=== PATIENT | female | born 2000 | race Hispanic/Latino ===

== ENCOUNTER 2019-11-13 23:47 | Emergency (ER) | payer BC ==
--- OUTSIDE RECORDS SUMMARY | 2019-11-13 23:50 | XMS REPORT | Continuity of Care Document ---
:2000 Author Organization [facility] Care Team Providers Name Role Phone [facility] Unavailable Un available Problems Problem Status Onset Classification Date Comments Sourc e Date Reported M25.449 - Active MH OPID "EFFUSION, 0 Sugar UNSPECIFIED Land HAND" Medications No Data Provided for This Section Allergies, Adverse Reactions, Alerts No Known Medication Allergies Immunizations No Data Provided for This Section Results No Data Provided for This Section Pathology Reports No Data Provided for This Section Diagnostic Reports Report Value Date Source Hand 2 views Bilateral EXAMINATION: Bilateral hands 2 views each . 11/13/2019 [facility] OPID [place] DX HISTORY: - Swelling of hand joint.; Bilateral h and polyarthralgia FINDINGS: Two views of each hand are performed w ithout comparison. There is no acute fracture o r dislocation. The joint spaces are normal. There are no osseous erosions identified. There is negative ulnar variance of the right wrist. The alignment is otherwise normal. There are no radiopaque foreign bodies. IMPRESSION: 1. Normal joint spaces of ronak th hands without radiographic evidence of inflammatory arthropathy. 2. Note made of negative ulnar variance of the r ight wrist. Consultation Notes No Data Provided for This Section Discharge Summaries No Data Provided for This Section History and Physicals No Data Provided for This Section Vital Signs No Data Provided for This Section Encounters No Data Provided for This Section Procedures No Data Provided for This Section Assessment and Plan No Data Provided for This Section Plan of Care No Data Provided for This Section Social History No Data Provided for This Section Family History No Data Provided for This Section Advance Directives No Data Provided for This Section Functional Status No Data Provided for This Section
[2019-11-14] MEDS ORDERED: FAMOTIDINE 20 MG/2 ML VIAL IV ONE (00:09)
[2019-11-14] MEDS ORDERED: DIPHENHYDRAMINE 50 MG/ML VIAL ONE (00:09)
[2019-11-14] MEDS ORDERED: METHYLPREDNISOLONE 125 MG INJ ONE (00:09)
[2019-11-14] MEDS ORDERED: NA CHLORIDE 0.9% 1,000 ML ONE (00:09)
--- NOTE | 2019-11-14 01:16 | EDPHYS ---
Physician Documentation [facility] Name: Marcie Kapadia Age: 19 yrs Sex: Female : 2000 Arrival Date: 11/13/2019 Time: 23:51 Bed 13 Private MD: Morgan Solis T ED Physician Jefferson Ford HPI: 11/13 00:00 This 19 yrs old Female presents to ER via Unassigned with complaints of Hand kb Swelling, Rash. 00:00 The patient's rash thought to be caused by an unknown cause. The rash is located on the kb body diffusely. The rash can be described as urticarial. Onset: The symptoms/episode began/occurred 1 week(s) ago, and became worse. Associated signs and symptoms: Pertinent positives: itching. Severity of symptoms: At their worst the symptoms were moderate in the emergency department the symptoms are unchanged. The patient has not experienced similar symptoms in the past. The patient has been recently seen by a physician:. Pt reports diffuse rash for a week. States the itching got worse tonight. Also reports bilateral hand swelling. Has been to PCP and was referred to rheumatology. Was seen by rheumatology and they ruled out an autoimmune disease. Pt has appt with vacuum drum drier operator on Friday. Reports swelling has been going on for a month and felt worse tonight. . 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 - Social history:: Smoking status: Patient denies any tobacco usage or history of. ROS: 00:00 Constitutional: Negative for fever, chills, and weight loss, Cardiovascular: Negative kb for chest pain, palpitations, and edema, Respiratory: Negative for shortness of breath, cough, wheezing, and pleuritic chest pain, Abdomen/GI: Negative for abdominal pain, nausea, vomiting, diarrhea, and constipation, Back: Negative for injury and pain, : Negative for injury, bleeding, discharge, and swelling, MS/Extremity: Negative for injury and deformity, Neuro: Negative for headache, weakness, numbness, tingling, and seizure. 00:00 Skin: Positive for swelling, of the right hand and left hand. 00:03 Skin: Positive for rash, diffusely. kb Exam: 00:03 Constitutional: This is a well developed, well nourished patient who is awake, alert, kb and in no acute distress. Head/Face: Normocephalic, atraumatic. Chest/axilla: Normal chest wall appearance and motion. Nontender with no deformity. No lesions are appreciated. Cardiovascular: Regular rate and rhythm with a normal S1 and S2. No gallops, murmurs, or rubs. Normal PMI, no JVD. No pulse deficits. Respiratory: Lungs have equal breath sounds bilaterally, clear to auscultation and percussion. No rales, rhonchi or wheezes noted. No increased work of breathing, no retractions or nasal flaring. Abdomen/GI: Soft, non-tender, with normal bowel sounds. No distension or tympany. No guarding or rebound. No evidence of tenderness throughout. MS/ Extremity: Pulses equal, no cyanosis. Neurovascular intact. Full, normal range of motion. Neuro: Awake and alert, GCS 15, oriented to person, place, time, and situation. Cranial nerves II-XII grossly intact. Motor strength 5/5 in all extremities. Sensory grossly intact. Cerebellar exam normal. Normal gait. 00:03 Skin: Appearance: normal except for affected area, swelling, noted on the right hand and left hand, that are moderate, that are marked, rash a moderate rash is noted, rash can be described as urticarial, and is diffusely located. Vital Signs: 00:00 BP 161 / 95; Pulse 120; Resp 18; Temp 99.2(O); Pulse Ox 99% on R/A; lp1 01:39 BP 127 / 85; Pulse 100; Resp 18; Pulse Ox 100% on R/A; lp1 MDM: 11/12 23:52 Patient medically screened. kb 11/13 00:00 Data reviewed: vital signs, nurses notes. Data interpreted: Pulse oximetry: on room air kb is 100 %. Interpretation: normal. 00:04 ED course: Educated to keep appt with vacuum drum drier operator to determine cause of hand swelling.. kb 01:15 Counseling: I had a detailed discussion with the patient and/or guardian regarding: the kb historical points, exam findings, and any diagnostic results supporting the discharge/admit diagnosis, the need for outpatient follow up, an allergy/operating systems specialist, a family practitioner, to return to the emergency department if symptoms worsen or persist or if there are any questions or concerns that arise at home. Response to treatment: the patient's symptoms have markedly improved after treatment. 11/12 23:59 Order name: IV Start; Complete Time: 00:53 kb Administered Medications: 00:45 Drug: Pepcid 20 mg Route: IVP; Site: left antecubital; vc 01:40 Follow up: Response: No adverse reaction lp1 00:45 Drug: SOLU-Medrol 125 mg Route: IVP; Site: left antecubital; vc 01:40 Follow up: Response: No adverse reaction; Marked relief of symptoms lp1 00:45 Drug: Benadryl 12.5 mg Route: IVP; Site: left antecubital; vc 01:40 Follow up: Response: No adverse reaction; Marked relief of symptoms lp1 00:50 Drug: NS 0.9% 1000 ml Route: IV; Rate: 1000 ml; Site: left antecubital; vc 01:39 Follow up: IV Status: Completed infusion; IV Intake: 900ml lp1 Disposition: 06:22 Co-signature as Attending Physician, Jefferson Ford MD. [email or web address] Disposition: 11/14/19 01:15 Discharged to Home. Impression: Urticaria, Bilateral hand swelling. - Condition is Stable. - Discharge Instructions: Edema, Ryov-on-Xela, Hives, [id number]-[id number], Allergies, Rcor-tl-Rgdj. - Prescriptions for Pepcid 20 mg Oral Tablet - take 1 tablet by ORAL route every 12 hours for 5 days; 10 tablet. Prednisone 20 mg Oral Tablet - take 1 tablet by ORAL route once daily for 5 days; 5 tablet. - Medication Reconciliation Form, Thank You Letter, Antibiotic Education, Prescription Opioid Use form. - Follow up: Emergency Department; When: As needed; Reason: Worsening of condition. Follow up: Private Physician; When: 2 - 3 days; Reason: Recheck today's complaints, Continuance of care, Re-evaluation by your physician. Signatures: Deanne Soliz, LUAN-C COPY MANAGER-Ckb Gely Miranda RN RN lp1 Deepali Greene RN RN vc Jefferson Ford MD MD [email or web address] Corrections: (The following items were deleted from the chart) 00:28 00:26 Home Meds: None; lp1 lp1 01:40 01:15 11/14/2019 01:15 Discharged to Home. Impression: Urticaria; Bilateral hand lp1 swelling. Condition is Stable. Forms are Medication Reconciliation Form, Thank You Letter, Antibiotic Education, Prescription Opioid Use. Follow up: Emergency Department; When: As needed; Reason: Worsening of condition. Follow up: Private Physician; When: 2 - 3 days; Reason: Recheck today's complaints, Continuance of care, Re-evaluation by your physician. kb
--- NOTE | 2019-11-14 01:16 | ER ---
Nurse's Notes [facility] Name: Marcie Kapadia Age: 19 yrs Sex: Female : 2000 Arrival Date: 11/13/2019 Time: 23:51 Bed 13 Private MD: Morgan Solis T Diagnosis: Urticaria;Bilateral hand swelling Presentation: 11/13 00:00 Chief complaint: Patient states: Hand swelling x 1 month, rash x 1 week; States seeing lp1 RA doctor for continued care without relief; States swelling and pain worse tonight. 00:00 Coronavirus screen: Proceed with normal triage. Ebola Screen: No symptoms or risks lp1 identified at this time. Initial Sepsis Screen: Does the patient meet any 2 criteria? HR > 90 bpm. Does the patient have a suspected source of infection? No. Patient's initial sepsis screen is negative. Risk Assessment: Do you want to hurt yourself or someone else? Patient reports no desire to harm self or others. Onset of symptoms was November 14, 2019. 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 - Social history:: Smoking status: Patient denies any tobacco usage or history of. Screenin:26 Abuse screen: Denies threats or abuse. Denies injuries from another. Nutritional lp1 screening: No deficits noted. Tuberculosis screening: No symptoms or risk factors identified. Fall Risk None identified. Assessment: 00:26 General: Appears in no apparent distress. Behavior is calm, cooperative, appropriate lp1 for age. General:. Pain: Complains of pain in right hand and left hand. Neuro: No deficits noted. Cardiovascular: No deficits noted. Respiratory: No deficits noted. GI: No signs and/or symptoms were reported involving the gastrointestinal system. : No signs and/or symptoms were reported regarding the genitourinary system. EENT: No signs and/or symptoms were reported regarding the EENT system. Derm: Rash noted that is urticaria, on left lateral posterior chest, right lateral posterior chest, left lateral anterior chest, right lateral anterior chest, right hand and left hand Reports itching. Musculoskeletal: No deficits noted. 00:50 Reassessment: Patient appears in no apparent distress at this time. Patient and/or vc family updated on plan of care and expected duration. Pain level reassessed. 01:39 Reassessment: Patient appears in no apparent distress at this time. Patient is alert, lp1 oriented x 3, equal unlabored respirations, skin warm/dry/pink. Patient states feeling better. Patient states symptoms have improved. Reassessment: Rash to bilateral hands, redness improved. Vital Signs: 00:00 BP 161 / 95; Pulse 120; Resp 18; Temp 99.2(O); Pulse Ox 99% on R/A; lp1 01:39 BP 127 / 85; Pulse 100; Resp 18; Pulse Ox 100% on R/A; lp1 ED Course: 11/12 23:51 Patient arrived in ED. es 23:51 [facility]C [facility] kb 23:51 Jefferson Ford MD is Attending Physician. kb 23:51 Morgan Solis MD is Private Physician. es 11/13 00:21 Deepali Greene, RN is Primary Nurse. vc 00:24 Missed attempt(s): 20 gauge in right antecubital area. Missed attempt(s): 20 gauge in lp1 left forearm. 00:25 Triage completed. lp1 00:26 Arm band placed on. lp1 00:27 Primary Nurse role handed off by Deepali Greene, STEVE lp1 00:27 Gely Miranda, STEVE is Primary Nurse. lp1 00:27 Patient has correct armband on for positive identification. lp1 00:40 Inserted saline lock: 24 gauge in left antecubital area, using aseptic technique. vc 01:39 No provider procedures requiring assistance completed. IV discontinued, No lp1 redness/swelling at site. Pressure dressing applied. Administered Medications: 00:45 Drug: Pepcid 20 mg Route: IVP; Site: left antecubital; vc 01:40 Follow up: Response: No adverse reaction lp1 00:45 Drug: SOLU-Medrol 125 mg Route: IVP; Site: left antecubital; vc 01:40 Follow up: Response: No adverse reaction; Marked relief of symptoms lp1 00:45 Drug: Benadryl 12.5 mg Route: IVP; Site: left antecubital; vc 01:40 Follow up: Response: No adverse reaction; Marked relief of symptoms lp1 00:50 Drug: NS 0.9% 1000 ml Route: IV; Rate: 1000 ml; Site: left antecubital; vc 01:39 Follow up: IV Status: Completed infusion; IV Intake: 900ml lp1 Intake: 01:39 IV: 900ml; Total: 900ml. lp1 Outcome: 01:15 Discharge ordered by . kb 01:40 Discharged to home ambulatory, with family. lp1 01:40 Condition: good 01:40 Discharge instructions given to patient, Instructed on discharge instructions, follow up and referral plans. medication usage, Demonstrated understanding of instructions, follow-up care, medications, Prescriptions given X 2. 01:40 Patient left the ED. lp1 Signatures: Deanne Soliz, COOK BARBECUE-C COOK BARBECUE-Azalia Link Laura, RN RN lp1 Deepali Greene, STEVE RN vc Corrections: (The following items were deleted from the chart) 00:28 00:26 Home Meds: None; lp1 lp1
[2019-11-14 01:54] VITALS: TEMP 99.2
[2019-11-14 01:59] VITALS: BP 127/85; O2SAT 100
== END 2019-11-14 01:40 | disposition home or self-care (01) ==
LOC: ER 23:47
DX: L50.9 Urticaria, unspecified (principal); R22.33 Localized swelling, mass and lump, upper limb, bilateral
CPT/HCPCS: 96361; 96375; 96374; 99283; J1200; J7030; J2930

== ENCOUNTER 2023-03-31 17:48 | Emergency (ER) | payer BC ==
--- OUTSIDE RECORDS SUMMARY | 2023-03-31 18:01 | XMS REPORT | Clinical Summary ---
:2000 Author Organization [facility] Address [address] [place] [address] Care Team Providers Name Role Phone Rsata Fernandez MD Primary Care Provider Morgan Solis MD Unavailable Missael Alexandra MD Unavailable [phone] Joshua Nunez MD Unavailable Allergies No known active allergies Medications Medication Sig Dispensed Refills Start Date End Date Status cetirizine (ZyrTEC) 10 Take 10 mg by 0 11/16/2019 Active mg tablet mouth as needed. montelukast Take 10 mg by 0 11/19/2019 Act amanda (SINGULAIR) 10 mg mouth daily. tablet cycloSPORINE, Take 100 mg by 0 A ctive SandIMMUNE, 100 mg mouth daily. capsule chloroquine phosphate Take 250 mg by 0 Active (ARALEN) 250 mg tablet mouth daily. methotrexate 2.5 mg Take 5 tablets by 0 03/21/2020 Active tablet mouth once a week. folic acid (FOLVITE) 1 Take 1 mg by mouth 0 Active mg tablet daily. pantoprazole TAKE ONE (1) 0 09/18/2020 Act amanda (PROTONIX) 40 mg EC TABLET(S) BY MOUTH tablet ONCE A DAY A HALF HOUR BEFORE BREAKFAST OR FIRST MEAL. Active Problems Patient Care Coordination Note Formatting of this note might be differe nt from the original. 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 Breast cancer Paternal Aunt 1 Nahomi Valencia Breast cancer Paternal Aunt 2 familia Quiroz Relation Name Status Comments Maternal Aunt Hayley Sosa Alive Maternal Grandfather Raman Bass Jr. Paternal Aunt 1 Nahomi Valencia Paternal Aunt 2 familia Quiroz Social History Tobacco Use Types Packs/Day Years Used Date Smoking Tobacco: Never Smokeless Tobacco: Never Alcohol Use Standard Drinks/Week Comments Never 0 (1 standard drink = 0.6 oz pure alcoho l) Education Answer Date Recorded What is the highest level of school you have Some college, n o degree 12/08/2019 completed or the highest degree you have received? Sex and Gender Information Value Date Recorded Sex Assigned at Not on file Gender Identity Not on file Sexual Orientation Not on file Job Start Date Occupation Industry Not on file Not on file Not on file History Length Weight Head Circum Gestation Age D/C Weight APGARs Delivery Me thod Feeding Per mother- Normal , kassi robin (vaginaln delivery). No cigarette or ETOH, no illnesses during Obstetrics History Last Filed Vital Signs Not on file Plan of Treatment Health Maintenance Due Date Last Done Comments COVID-19 Vaccination (#1) 2004 Results Not on fileafter 03/31/2022 Insurance Payer Benefit Plan / Subscriber ID Effective Dates Phone Addre ss Type Group BLUE CROSS BCBS PPO POS [id number] 2017-Presen [phone] [id number] PPO BLUE SHIELD OUT OF STATE t [address] [place], [place] [id number] Marcie Kapadia Personal/Family Self 2000 [address]Home) [place] [phone] [place] , ([place]) [place] [id number] Care Teams Law Office Assistant Relationship Specialty Start Date End Date Rasta Fernandez MD PCP - General Medical Oncology 12/01/19 [address] [place] [address] Morgan Solis, PCP - External Referring Family Practice 12/[address] [place] [address] Missael Alexandra PCP - External Follow Up A Dermatology 12/08/19 [place] [address] [place] [address] Joshua Nunez MD PCP - External Follow Up C Rheumatology 12/08/19 [address] [facility] [address] [place] [address]
--- OUTSIDE RECORDS SUMMARY | 2023-03-31 18:02 | XMS REPORT | Continuity of Care Document ---
:2000 Author Organization [facility] t Address [address] [place] [address] Care Team Providers Name Role Phone Rasta Romero MD Primary Care Physician Kia Maxwell Attending Clinician Unavailable MERLIN ALEXANDRA Attending Clinician Unavailable DOUGLAS TYSON Attending Clinician Unavailable LUIS WALKER Attending Clinician Unavailable SYSTEM, PROVIDER NOT IN Attending Clinician Unavailable KATHERINE LIZ Attending Clinician Unavailable Katherine Liz MD Attending Clinician [phone] [facility] Attending Clinician Unavailable Doctor Unassigned, Perrin Attending Clinician Unavailable Corbin Bravo APRN Attending Clinician Nurse, [facility] Int Med Allergy Attending Clinician Unavailable RASTA ROMERO Attending Clinician Unavailable Sanya Levi DO Attending Clinician Pob, [facility] Main Attending Clinician Unavailable Ilir Merlos MD Attending Clinician ILIR MERLOS Attending Clinician Unavailable Joshua PAK Attending Clinician Unavailable Xavi Jesus MD Attending Clinician Rasta Romero MD Attending Clinician RASTA ROMERO Attending Clinician Unavailable XAVI JESUS Attending Clinician Unavailable [facility] Attending Clinician Unavailable Fellow, Infectious Disease Attending Clinician Unavailable Olga Anderson MD Attending Clinician OLGA ANDERSON Attending Clinician Unavailable CHARAN TRIPLETT Attending Clinician Unavailable Gabino Trent MD Attending Clinician GABINO TRENT Attending Clinician Unavailable Joshua Nunez Attending Clinician ILIR MERLOS Admitting Clinician Unavailable Payers Payer Name Policy Type Policy Number Effective Date Expiration Date S sandra GENERIC BCBS [id number] 2017 2017 00:00:00 00:00:00 BCBSTX PPO [id number] 2020 00:00:00 BCBS PPO POS [id number] 2017 OUT OF STATE 00:00:00 GENERIC [employer] 6 [id number] Common Spiri t [facility] Problems Condition Condition Condition Status Onset Resolution Last Treating Co mments Source Name Details Category Date Date Treatment Clinician Date Abnormal Abnormal Disease Active [facility] liver liver 11-25 Health enzymes enzymes 00:00: 00 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 00 seed sorter seed sorter Disease Active UT current current 19 Health use of use of 00:00: immunosupp immunosupp 00 ressive ressive drug drug Positive Positive Disease Active UT JOSH JOSH -19 Health (antinucle (antinucle 00:00: ar ar 00 antibody) antibody) Dermatitis Dermatitis Disease Active U T , , 1-05 Health unspecifie unspecifie 00:00: d d 00 Polyarthra Polyarthra Disease Active U T lgia lgia 1-05 Health 00:00: 00 Class 3 Class 3 Disease Active [facility] severe severe 7-16 Health obesity in obesity in 00:00: adult adult 00 Vitamin Vitamin Disease Active Univers B12 B12 7-10 [place] [facility] Other Other Disease Active 2020-0 Univers eosinophil eosinophil 624 it y of ia ia 00:00: [place] 00 MD [facility] Blistering Blistering Disease Active 2020-0 U nivers rash rash 11-29 ity of 00:00: [place] 00 Medical Branch Chronic Chronic Disease Active 2019- [facility] rhinitis rhinitis 11-29 Health 00:00: 00 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 11-29 Health 00:00: 00 Urticaria Urticaria Disease Active 2020- [facility] 6-23 Health 00:00: 00 M25.449 - M25.449 - Diagnosis Active 2019-11-13 Memoria "EFFUSION, "EFFUSION, 11-08 10:16:00 l UNSPECIFIE UNSPECIFIE 00:01: He rmann D HAND" D HAND" 00 Active 11/09/2019 MH OPID [place] History of History of Disease Active 2019-0 U T anemia anemia 529 Health 00:00: 00 [id number] Non-season Problem Com mon al Spirit allergic - [facility] rhinitis [facility] due to [facility] [id number] 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) [facility] Allergies, Adverse Reactions, Alerts Allergy Allergy Status Severity Reaction(s) Onset Inactive Treating Comm ents Source Name Type Date Date Clinician NO KNOWN Drug Active Univers ALLERGIE Class ity of S [facility] Family History Family Member Diagnosis Comments Start Date Stop Date Source Paternal aunt Breast cancer [facility] MD [place] son Cancer [place] Maternal aunt [facility]immune [facility] Maternal Colon cancer University o f grandfather [place] MD Jay rson [facility] Social History Social Habit Start Date Stop Date Quantity Comments Source Gender identity [facility] [place] [facility] History SDOH University o f Alcohol Std Drinks [place] [facility] History SDOH University o f Alcohol Binge [place] Medic al Branch History SDOH University o f Alcohol Comment [place] Med ical Branch Sexual orientation Joyce mathis [facility] MD [place] son [facility] History of Tobacco Common Spirit - Use [facility] Tobacco use and 2022-12-18 2022-12-18 Smokeless Universit y of exposure 00:00:00 00:00:00 tobacco non-user [facility] [place] dical Branch Exposure to 2022-11-10 2022-11-20 Not sure [facility] SARS-CoV-2 (event) 00:00:00 12:11:00 Alcohol intake 2020-10-16 2020-10-16 Lifetime University of 00:00:00 00:00:00 non-drinker [place] MD [facility] History of Social 2019-12-23 2019-12-23 Univers ity of function 00:00:00 00:00:00 [facility] Education 2019-12-08 2019-12-08 21 University of 00:00:00 00:00:00 [place] MD [facility] History SDOH 2019-11-30 2019-11-30 1 University o f Alcohol Frequency 00:00:00 00:00:00 [facility] Sex Assigned At [birth year] Universit y of 00:00:00 00:00:00 [place] MD [facility] Smoking Status Start Date Stop Date Source Never smoked tobacco [facility] Medications Ordered Filled Start Stop Current Ordering Indication Dosage Frequency Signature Comments Components Source Medication Medication Date Date Medication? Clinician (SIG) Name Name mepolizumab Yes [id number] 300mg inject 3 Univers (NUCALA) 02-11 Pens under ity o f 100 mg/mL [place] every 4 Medical (four) Branch weeks. mepolizumab Yes [id number] 300mg inject 3 Univers (NUCALA) 02-04 Pens under ity o f 100 mg/mL 00:00[place] every 4 Medical (four) Branch weeks. mepolizumab 2022- No [id number] 300mg inject 3 Univers (NUCALA) 02-04 Pens under ity of 100 mg/mL 00:00: 00:00 the skin [place] AtIn 00 :00 every 4 Medical (four) Branch weeks. mepolizumab 2022- No [id number] 300mg inject 3 Univers (NUCALA) 02-04 Pens under ity of 100 mg/mL 00:00: 00:00 the skin [place] AtIn 00 :00 every 4 Medical (four) Branch weeks. famotidine 2023-0 Yes [id number] 20mg Take 1 Univers 20 mg 8-28 tablet by ity of tablet 00:00: mouth in [place] 00 the Medical morning Branch and 1 tablet in the evening. famotidine 2023-0 Yes [id number] 20mg Take 1 Univers 20 mg 8-28 tablet by ity of tablet 00:00: mouth in [place] 00 the Medical morning Branch and 1 tablet in the evening. famotidine 2023-0 Yes [id number] 20mg Take 1 Univers 20 mg 8-28 tablet by ity of tablet 00:00: mouth in [place] 00 the Medical morning Branch and 1 tablet in the evening. famotidine 2023-0 Yes [id number] 20mg Take 1 Univers 20 mg 8-28 tablet by ity of tablet 00:00: mouth in [place] [address] the Medical morning Branch and 1 tablet in the evening. famotidine 2023-0 Yes [id number] 20mg Take 1 Univers 20 mg 8-28 tablet by ity of tablet 00:00: mouth in [place] [address] the Medical morning Branch and 1 tablet in the evening. famotidine 2023-0 Yes [id number] 20mg Take 1 Univers 20 mg 8-28 tablet by ity of tablet 00:00: mouth in [place] 00 the Medical morning Branch and 1 tablet in the evening. famotidine 2023-0 Yes [id number] 20mg Take 1 Univers 20 mg 8-28 tablet by ity of tablet 00:00: mouth in [place] 00 the Medical morning Branch and 1 tablet in the evening. triamcinolo 2023-0 Yes [id number] Apply to Univers ne 7-28 area(s) 2 ity of acetonide 00:00: (two) [place] 0.1 % cream 00 times Medical daily. Branch triamcinolo 2023-0 Yes [id number] Apply to Univers ne 7-28 area(s) 2 ity of acetonide 00:00: (two) [place] 0.1 % cream 00 times Medical daily. Branch triamcinolo 2023-0 Yes [id number] Apply to Univers ne 7-28 area(s) 2 ity of acetonide 00:00: (two) [place] 0.1 % cream 00 times Medical daily. Branch triamcinolo 2023-0 Yes [id number] Apply to Univers ne 7-28 area(s) 2 ity of acetonide 00:00: (two) [place] 0.1 % cream 00 times Medical daily. Branch triamcinolo 2023-0 Yes [id number] Apply to Univers ne 7-28 area(s) 2 ity of acetonide 00:00: (two) [place] 0.1 % cream 00 times Medical daily. Branch triamcinolo 2023-0 Yes [id number] Apply to Univers ne 7-28 area(s) 2 ity of acetonide 00:00: (two) [place] 0.1 % cream 00 times Medical daily. Branch triamcinolo 2023-0 Yes [id number] Apply to Univers ne 7-28 area(s) 2 ity of acetonide 00:00: (two) [place] 0.1 % cream 00 times Medical daily. Branch triamcinolo 2023-0 Yes [id number] Apply to Univers ne 7-28 area(s) 2 ity of acetonide 00:00: (two) [place] 0.1 % cream 00 times Medical daily. Branch triamcinolo 2023-0 Yes [id number] Apply to Univers ne 0.5 % 7-27 area(s) 2 ity of cream 00:00: (two) [place] 00 times Medical daily. Branch triamcinolo 2023-0 2023- No [id number] Apply to Univers ne 0.5 % 7-27 07-28 area(s) 2 ity o f cream 00:00: 00:00 (two) [place] 00 :00 times Medical daily. Branch triamcinolo 2023-0 Yes [id number] Apply to Univers ne 0.5 % 7-12 area(s) 3 ity of cream 00:00: (three) [place] 00 times Medical daily. Branch fexofenadin 2023-0 Yes [id number] 360mg Take 2 Univers e (BHUMIKA 7-12 tablets by ity of ALLERGY) 00:00: mouth in [place] 180 mg 00 the Medical tablet morning. Branch triamcinolo 2023-0 Yes [id number] Apply to Univers ne 0.5 % 7-12 area(s) 3 ity of cream 00:00: (three) [place] 00 times Medical daily. Branch fexofenadin 2023-0 Yes [id number] 360mg Take 2 Univers e (BHUMIKA 7-12 tablets by ity of ALLERGY) 00:00: mouth in [place] 180 mg 00 the Medical tablet morning. Branch triamcinolo 2022-0 Yes [id number] Apply to Univers ne 0.5 % 7-12 area(s) 3 ity of cream 00:00: (three) [place] 00 times Medical daily. Branch fexofenadin 2022-0 Yes [id number] 360mg Take 2 Univers e (BHUMIKA 7-12 tablets by ity of ALLERGY) 00:00: mouth in [place] 180 mg 00 the Medical tablet morning. Branch fexofenadin 2022-0 Yes [id number] 360mg Take 2 Univers e (BHUMIKA 7-12 tablets by ity of ALLERGY) 00:00: mouth in [place] 180 mg 00 the Medical tablet morning. Branch fexofenadin 2022-0 Yes [id number] 360mg Take 2 Univers e (BHUMIKA 7-12 tablets by ity of ALLERGY) 00:00: mouth in [place] 180 mg 00 the Medical tablet morning. Branch fexofenadin 2022-0 Yes [id number] 360mg Take 2 Univers e (BHUMIKA 7-12 tablets by ity of ALLERGY) 00:00: mouth in [place] 180 mg 00 the Medical tablet morning. Branch fexofenadin 2022-0 Yes [id number] 360mg Take 2 Univers e (BHUMIKA 7-12 tablets by ity of ALLERGY) 00:00: mouth in [place] 180 mg 00 the Medical tablet morning. Branch fexofenadin 2022-0 Yes [id number] 360mg Take 2 Univers e (BHUMIKA 7-12 tablets by ity of ALLERGY) 00:00: mouth in [place] 180 mg 00 the Medical tablet morning. Branch fexofenadin 2022-0 Yes [id number] 360mg Take 2 Univers e (BHUMIKA 7-12 tablets by ity of ALLERGY) 00:00: mouth in [place] 180 mg 00 the Medical tablet morning. Branch fexofenadin 2022-0 Yes [id number] 360mg Take 2 Univers e (BHUMIKA 7-12 tablets by ity of ALLERGY) 00:00: mouth in [place] 180 mg 00 the Medical tablet morning. Branch fexofenadin 2022-0 Yes [id number] 360mg Take 2 Univers e (BHUMIKA 7-12 tablets by ity of ALLERGY) 00:00: mouth in [place] 180 mg 00 the Medical tablet morning. Branch fexofenadin 2023-0 Yes [id number] 360mg Take 2 Univers e (BHUMIKA 7-12 tablets by ity of ALLERGY) 00:00: mouth in [place] 180 mg 00 the Medical tablet morning. Branch triamcinolo 202-0 3- No [id number] Apply to Univers ne 0.5 % -05 15-27 area(s) 3 ity o f cream 00:00: 00:00 (three) [place] 00 :00 times Medical daily. Branch methotrexat 2022-0 Yes [id number] Take 8 UT e 2.5 MG 6-14 pills Health tablet 00:00: every Friday leucovorin 2022-0 4- No [id number] 10mg Take 1 UT (Wellcovori 6-14 06-14 tablet (10 H ealth n) 10 MG 00:00: 04:59 mg total) tablet 00 :00 by mouth 1 (one) time per week. Take with a full glass of water. triamcinolo 2022-0 Yes [id number] Apply to Univers ne 5-23 area(s) 2 ity of acetonide 00:00: (two) [place] 0.1 % cream 00 times Medical daily. Branch triamcinolo 2022-0 Yes [id number] Apply to Univers ne 5-23 area(s) 2 ity of acetonide 00:00: (two) [place] 0.1 % cream 00 times Medical daily. Branch triamcinolo 2022-0 3- No [id number] Apply to Univers ne 5-23 07-12 area(s) 2 ity of acetonide 00:00: 00:00 (two) [place] 0.1 % cream 00 :00 times Medical daily. Branch triamcinolo 2022-0 2022- No [id number] Apply to Univers ne 5-23 07-12 area(s) 2 ity of acetonide 00:00: 00:00 (two) [place] 0.1 % cream 00 :00 times Medical daily. Branch leucovorin 2022-0 3- No [id number] 10mg Take 1 UT (Wellcovori 5-11 06-14 tablet (10 H ealth n) 10 MG 00:00: 00:00 mg total) tablet 00 :00 by mouth 1 (one) time per week. Take with a full glass of water. chloroquine Yes [id number] 125mg QD Take 0.5 UT (Aralen) 3-13 tablets Health 250 MG 00:00: (125 mg tablet 00 total) by mouth 1 (one) time each day. chloroquine Yes [id number] 125mg QD Take 0.5 UT (Aralen) 3-13 tablets Health 250 MG 00:00: (125 mg tablet 00 total) by mouth 1 (one) time each day. fluocinonid 2023- No [id number] Q.5D Apply UT e (Lidex) 08-19 topically Heal th 0.05 % 00:00: 04:59 2 (two) external 00 :00 times a solution day if needed for rash. spironolact 2023- No [id number] 100mg QD Take 1 UT one 08-19 tablet Health (Aldactone) 00:00: 04:59 (100 mg 100 MG 00 :00 total) by tablet mouth 1 (one) time each day. clindamycin 2023- No [id number] Q.5D Apply UT (Cleocin-T) 08-19 topically He alth 1 % lotion 00:00: 04:59 2 (two) 00 :00 times a day. fluocinonid 2023- No [id number] Q.5D Apply UT e (Lidex) 08-19 topically Heal th 0.05 % 00:00: 04:59 2 (two) external 00 :00 times a solution day if needed for rash. spironolact 2023- No [id number] 100mg QD Take 1 UT one 08-19 tablet Health (Aldactone) 00:00: 04:59 (100 mg 100 MG 00 :00 total) by tablet mouth 1 (one) time each day. clindamycin 2023- No [id number] Q.5D Apply UT (Cleocin-T) 08-19 topically He alth 1 % lotion 00:00: 04:59 2 (two) 00 :00 times a day. mepolizumab Yes [id number] INJECT THE Univers (NUCALA) 1-11 CONTENTS ity of 100 mg/mL 00:00: OF 3 PENS [place] AtIn 00 (300 MG) Medical UNDER THE Branch SKIN EVERY 4 WEEKS mepolizumab 3-0 Yes [id number] INJECT THE Univers (NUCALA) 1-11 CONTENTS ity of 100 mg/mL 00:00: OF 3 PENS [place] At[place] 00 (300 MG) Medical UNDER THE Branch SKIN EVERY 4 WEEKS mepolizumab 3-0 Yes [id number] INJECT THE Univers (NUCALA) 1-11 CONTENTS ity of 100 mg/mL 00:00: OF 3 PENS [place] At[place] 00 (300 MG) Medical UNDER THE Branch SKIN EVERY 4 WEEKS mepolizumab 2022-0 Yes [id number] INJECT THE Univers (NUCALA) 1-11 CONTENTS ity of 100 mg/mL 00:00: OF 3 PENS [place] At[place] 00 (300 MG) Medical UNDER THE Branch SKIN EVERY 4 WEEKS mepolizumab 3-0 Yes [id number] INJECT THE Univers (NUCALA) 1-11 CONTENTS ity of 100 mg/mL 00:00: OF 3 PENS [place] At[place] 00 (300 MG) Medical UNDER THE Branch SKIN EVERY 4 WEEKS mepolizumab 3-0 Yes [id number] INJECT THE Univers (NUCALA) 1-11 CONTENTS ity of 100 mg/mL 00:00: OF 3 PENS [place] At[place] 00 (300 MG) Medical UNDER THE Branch SKIN EVERY 4 WEEKS mepolizumab 3-0 Yes [id number] INJECT THE Univers (NUCALA) 1-11 CONTENTS ity of 100 mg/mL 00:00: OF 3 PENS [place] At[place] 00 (300 MG) Medical UNDER THE Branch SKIN EVERY 4 WEEKS mepolizumab 3-0 Yes [id number] INJECT THE Univers (NUCALA) 1-11 CONTENTS ity of 100 mg/mL 00:00: OF 3 PENS [place] At[place] 00 (300 MG) Medical UNDER THE Branch SKIN EVERY 4 WEEKS mepolizumab 2023-0 Yes [id number] INJECT THE Univers (NUCALA) 1-11 CONTENTS ity of 100 mg/mL 00:00: OF 3 PENS [place] At[place] 00 (300 MG) Medical UNDER THE Branch SKIN EVERY 4 WEEKS mepolizumab 2023-0 Yes [id number] INJECT THE Univers (NUCALA) 1-11 CONTENTS ity of 100 mg/mL 00:00: OF 3 PENS [place] At[place] 00 (300 MG) Medical UNDER THE Branch SKIN EVERY 4 WEEKS mepolizumab 2023-0 Yes [id number] INJECT THE Univers (NUCALA) 1-11 CONTENTS ity of 100 mg/mL 00:00: OF 3 PENS [place] At[place] 00 (300 MG) Medical UNDER THE Branch SKIN EVERY 4 WEEKS mepolizumab 2023-0 Yes [id number] INJECT THE Univers (NUCALA) 1-11 CONTENTS ity of 100 mg/mL 00:00: OF 3 PENS [place] At[place] 00 (300 MG) Medical UNDER THE Branch SKIN EVERY 4 WEEKS mepolizumab 2023-0 Yes [id number] INJECT THE Univers (NUCALA) 1-11 CONTENTS ity of 100 mg/mL 00:00: OF 3 PENS [place] AtIn 00 (300 MG) Medical UNDER THE Branch SKIN EVERY 4 WEEKS mepolizumab 3-0 Yes [id number] INJECT THE Univers (NUCALA) 1-11 CONTENTS ity of 100 mg/mL 00:00: OF 3 PENS [place] AtIn 00 (300 MG) Medical UNDER THE Branch SKIN EVERY 4 WEEKS mepolizumab 3-0 Yes [id number] INJECT THE Univers (NUCALA) 1-11 CONTENTS ity of 100 mg/mL 00:00: OF 3 PENS [place] At[place] 00 (300 MG) Medical UNDER THE Branch SKIN EVERY 4 WEEKS mepolizumab 2023-0 Yes [id number] INJECT THE Univers (NUCALA) 1-11 CONTENTS ity of 100 mg/mL 00:00: OF 3 PENS [place] At[place] 00 (300 MG) Medical UNDER THE Branch SKIN EVERY 4 WEEKS mepolizumab 2023-0 Yes [id number] INJECT THE Univers (NUCALA) 1-11 CONTENTS ity of 100 mg/mL 00:00: OF 3 PENS [place] At[place] 00 (300 MG) Medical UNDER THE Branch SKIN EVERY 4 WEEKS mepolizumab 2023-0 2023- No [id number] INJECT THE Univers (NUCALA) 1-11 08-29 CONTENTS ity of 100 mg/mL 00:00: 00:00 OF 3 [place]ENS [place] At[place] 00 :00 (300 MG) Medical UNDER THE Branch SKIN EVERY 4 WEEKS mepolizumab 2022- No [id number] INJECT THE Univers (NUCALA) 06-19 08-29 CONTENTS ity of 100 mg/mL 00:00: 00:00 OF 3 PENS [place] At[place] 00 :00 (300 MG) Medical UNDER THE Branch SKIN EVERY 4 WEEKS metFORMIN 2021-06 Yes [id number] 500mg QD Take 1 UT (Glucophage 0-05 tablet Health ) 500 MG 00:00: (500 mg tablet 00 total) by mouth 1 (one) time each day with breakfast. metFORMIN 2021-06 Yes [id number] 500mg QD Take 1 UT (Glucophage 0-05 tablet Health ) 500 MG 00:00: (500 mg tablet 00 total) by mouth 1 (one) time each day with breakfast. doxycycline 2021-06- No [id number] 100mg Q.5D Take 1 UT (Monodox) 0-05 10-06 capsule Health 100 MG 00:00: 04:59 (100 mg capsule 00 :00 total) by mouth in the morning and 1 capsule (100 mg total) in the evening. doxycycline 2021-06- No [id number] 100mg Q.5D Take 1 UT (Monodox) 0-05 10-06 capsule Health 100 MG 00:00: 04:59 (100 mg capsule 00 :00 total) by mouth in the morning and 1 capsule (100 mg total) in the evening. mepolizumab Yes INJECT THE Univers (NUCALA) 8-15 CONTENTS ity of 100 mg/mL 00:00: OF 3 PENS [place] At[place] 00 (300 MG) Medical UNDER THE Branch SKIN EVERY 4 WEEKS mepolizumab Yes INJECT THE Univers (NUCALA) 8-15 CONTENTS ity of 100 mg/mL 00:00: OF 3 PENS [place] At[place] 00 (300 MG) Medical UNDER THE Branch SKIN EVERY 4 WEEKS mepolizumab Yes INJECT THE Univers (NUCALA) 8-15 CONTENTS ity of 100 mg/mL 00:00: OF 3 PENS [place] AtIn 00 (300 MG) Medical UNDER THE Branch SKIN EVERY 4 WEEKS mepolizumab Yes INJECT THE Univers (NUCALA) 8-15 CONTENTS ity of 100 mg/mL 00:00: OF 3 PENS [place] AtIn 00 (300 MG) Medical UNDER THE Branch SKIN EVERY 4 WEEKS mepolizumab Yes INJECT THE Univers (NUCALA) 8-15 CONTENTS ity of 100 mg/mL 00:00: OF 3 PENS [place] AtIn 00 (300 MG) Medical UNDER THE Branch SKIN EVERY 4 WEEKS mepolizumab Yes INJECT THE Univers (NUCALA) 8-15 CONTENTS ity of 100 mg/mL 00:00: OF 3 PENS [place] AtIn 00 (300 MG) Medical UNDER THE Branch SKIN EVERY 4 WEEKS mepolizumab Yes INJECT THE Univers (NUCALA) 8-15 CONTENTS ity of 100 mg/mL 00:00: OF 3 PENS [place] AtIn 00 (300 MG) Medical UNDER THE Branch SKIN EVERY 4 WEEKS mepolizumab Yes INJECT THE Univers (NUCALA) 8-15 CONTENTS ity of 100 mg/mL 00:00: OF 3 PENS [place] AtIn 00 (300 MG) Medical UNDER THE Branch SKIN EVERY 4 WEEKS mepolizumab 2022- No INJECT THE Univers (NUCALA) 8-15 -11 CONTENTS ity of 100 mg/mL 00:00: 00:00 OF 3 [place]ENS [place] At[place] 00 :00 (300 MG) Medical UNDER THE Branch SKIN EVERY 4 WEEKS mepolizumab 2022- No INJECT THE Univers (NUCALA) 8-15 - CONTENTS ity of 100 mg/mL 00:00: 00:00 OF 3 [place]ENS [place] At[place] 00 :00 (300 MG) Medical UNDER THE Branch SKIN EVERY 4 WEEKS mepolizumab 2022- No INJECT THE Univers (NUCALA) 8-15 - CONTENTS ity of 100 mg/mL 00:00: 00:00 OF 3 [place]ENS [place] At[place] 00 :00 (300 MG) Medical UNDER THE Branch SKIN EVERY 4 WEEKS spironolact 2022- No [id number] 50mg QD Take 1 UT one 01-17 tablet (50 Health (Aldactone) 00:00: 04:59 mg total) 50 MG 00 :00 by mouth 1 tablet (one) time each day. spironolact 2022- No [id number] 50mg QD Take 1 UT one 01-17 tablet (50 Health (Aldactone) 00:00: 00:00 mg total) 50 MG 00 :00 by mouth 1 tablet (one) time each day. spironolact 2022- No [id number] 50mg QD Take 1 UT one 01-17 tablet (50 Health (Aldactone) 00:00: 00:00 mg total) 50 MG 00 :00 by mouth 1 tablet (one) time each day. doxycycline 2021- No [id number] 100mg Q.5D Take 1 UT (Vibramycin 12-18 capsule Heal th ) 100 MG 00:00: 04:59 (100 mg capsule 00 :00 total) by mouth in the morning and 1 capsule (100 mg total) in the evening. Take with at least 8 ounces (large glass) of water, do not lie down for 30 minutes after. doxycycline 2021- No [id number] 100mg Q.5D Take 1 UT (Vibramycin 12-18 capsule Heal th ) 100 MG 00:00: 04:59 (100 mg capsule 00 :00 total) by mouth in the morning and 1 capsule (100 mg total) in the evening. Take with at least 8 ounces (large glass) of water, do not lie down for 30 minutes after. mepolizumab Yes [id number] 300mg inject 3 Univers (NUCALA) 7-08 Syringes ity of 100 mg/mL 00:00: under the [place] Sy[place] 00 skin every Medical 4 (four) Branch weeks. mepolizumab 2021-0 Yes [id number] 300mg inject 3 Univers (NUCALA) 7-08 Pens under ity o f 100 mg/mL 00:00: [place] 00 every 4 Medical (four) Branch weeks. mepolizumab 2021-0 Yes [id number] 300mg inject 3 Univers (NUCALA) 7-08 Pens under ity o f 100 mg/mL 00:00: [place] 00 every 4 Medical (four) Branch weeks. mepolizumab 2021-0 Yes [id number] 300mg inject 3 Univers (NUCALA) 7-08 Pens under ity o f 100 mg/mL 00:00: [place] 00 every 4 Medical (four) Branch weeks. mepolizumab 2-0 Yes [id number] 300mg inject 3 Univers (NUCALA) 7-08 Pens under ity o f 100 mg/mL 00:00: [place] 00 every 4 Medical (four) Branch weeks. mepolizumab 2022-0 Yes [id number] 300mg inject 3 Univers (NUCALA) 7-08 Pens under ity o f 100 mg/mL 00:00: [place] 00 every 4 Medical (four) Branch weeks. mepolizumab 2-0 Yes [id number] 300mg inject 3 Univers (NUCALA) 7-08 Pens under ity o f 100 mg/mL 00:00: [place] 00 every 4 Medical (four) Branch weeks. mepolizumab 2-0 Yes [id number] 300mg inject 3 Univers (NUCALA) 7-08 Pens under ity o f 100 mg/mL 00:00: [place] 00 every 4 Medical (four) Branch weeks. mepolizumab 2-0 Yes [id number] 300mg inject 3 Univers (NUCALA) 7-08 Pens under ity o f 100 mg/mL 00:00: [place] 00 every 4 Medical (four) Branch weeks. mepolizumab 2-0 Yes [id number] 300mg inject 3 Univers (NUCALA) 7-08 Pens under ity o f 100 mg/mL 00:00: [place] 00 every 4 Medical (four) Branch weeks. mepolizumab 2022-0 Yes [id number] 300mg inject 3 Univers (NUCALA) 7-08 Pens under ity o f 100 mg/mL 00:00: [place] 00 every 4 Medical (four) Branch weeks. mepolizumab 2022-0 Yes [id number] 300mg inject 3 Univers (NUCALA) 7-08 Pens under ity o f 100 mg/mL 00:00: [place] 00 every 4 Medical (four) Branch weeks. mepolizumab 2022-0 Yes [id number] 300mg inject 3 Univers (NUCALA) 7-08 Pens under ity o f 100 mg/mL 00:00: [place] 00 every 4 Medical (four) Branch weeks. mepolizumab 2021-0 Yes [id number] 300mg inject 3 Univers (NUCALA) 7-08 Pens under ity o f 100 mg/mL 00:00: [place] 00 every 4 Medical (four) Branch weeks. mepolizumab 2021-0 Yes [id number] 300mg inject 3 Univers (NUCALA) 7-08 Pens under ity o f 100 mg/mL 00:[place]: [place] 00 every 4 [facility] (four) Branch weeks. mepolizumab 2021-0 Yes [id number] 300mg inject 3 [facility] ([facility]) 7-08 [place] [facility] o f 100 mg/mL 00:00: [place] 00 every 4 [facility] (four) Branch weeks. mepolizumab 2021-0 Yes [id number] 300mg inject 3 [facility] (NUCALA) 7-08 [place] [facility]y o f 100 mg/mL 00:00: [place] At[place] 00 every 4 [facility] (four) Branch weeks. mepolizumab 2021-0 Yes [id number] 300mg inject 3 [facility] (NUCALA) 7-08 [place] under [facility]y o f 100 mg/mL 00:00: [place] At[place] 00 every 4 [facility] (four) Branch weeks. mepolizumab 2021-0 Yes [id number] 300mg inject 3 [facility] (NUCALA) 7-08 [place] [facility] o f 100 mg/mL 00:00: [place] At[place] 00 every 4 [facility] (four) Branch weeks. mepolizumab 2-0 Yes [id number] 300mg inject 3 [facility] (NUCALA) 7-08 [place] under [facility] o f 100 mg/mL 00:00: [place] At[place] 00 every 4 [facility] (four) Branch weeks. mepolizumab 2-0 Yes [id number] 300mg inject 3 [facility] (NUCALA) 7-08 [place] under [facility]y o f 100 mg/mL 00:00: [place] At[place] 00 every 4 [facility] (four) Branch weeks. mepolizumab 2-0 Yes [id number] 300mg inject 3 [facility] (NUCALA) 7-08 [place] under [facility]y o f 100 mg/mL 00:00: [place] At[place] 00 every 4 [facility] (four) Branch weeks. mepolizumab 2-0 Yes [id number] 300mg inject 3 [facility] (NUCALA) 7-08 [place] under ity o f 100 mg/mL 00:00: [place] At[place] 00 every 4 [facility] (four) Branch weeks. mepolizumab 2021-0 Yes [id number] 300mg inject 3 [facility] (NUCALA) 7-08 [place] under [facility]y o f 100 mg/mL 00:00: [place] At[place] 00 every 4 [facility] (four) Branch weeks. mepolizumab 2021-0 Yes [id number] 300mg inject 3 [facility] (NUCALA) 7-08 [place] [facility]y o f 100 mg/mL 00:00: [place] At[place] 00 every 4 [facility] (four) Branch weeks. mepolizumab 2021-0 Yes [id number] 300mg inject 3 [facility] (NUCALA) 7-08 [place] [facility] o f 100 mg/mL 00:00: [place] At[place] 00 every 4 [facility] (four) Branch weeks. mepolizumab 2021-0 Yes [id number] 300mg inject 3 [facility] (NUCALA) 7-08 [place] [facility] o f 100 mg/mL 00:00: [place] At[place] 00 every 4 [facility] (four) Branch weeks. mepolizumab 2021-0 3- No [id number] 300mg inject 3 [facility] (NUCALA) 7-08 08-29 [place] under ity of 100 mg/mL 00:00: 00:00 the skin [place] AtIn 00 :00 every 4 Medical (four) Branch weeks. mepolizumab 202-0 2023- No [id number] 300mg inject 3 [facility] (NUCALA) 7-08 08-29 [place] under ity of 100 mg/mL 00:00: 00:00 the skin [place] AtIn 00 :00 every 4 Medical (four) Branch weeks. albuterol 2022-0 Yes [id number] 2{puff} Inhale 2 [facility] 90 7-06 Puffs ity of mcg/actuati 00:00: every 6 [place] as on inhaler 00 (six) Medical hours as Branch needed for Wheezing or Shortness of Breath. albuterol Yes [id number] 2{puff} Inhale 2 [facility] 90 7-06 Puffs ity of mcg/actuati 00:00: every 6 [place] as on inhaler 00 (six) Medical hours as Branch needed for Wheezing or Shortness of Breath. albuterol Yes [id number] 2{puff} Inhale 2 [facility] 90 7-06 Puffs ity of mcg/actuati 00:00: every 6 [place] as on inhaler 00 (six) Medical hours as Branch needed for Wheezing or Shortness of Breath. albuterol Yes [id number] 2{puff} Inhale 2 [facility] 90 7-06 Puffs ity of mcg/actuati 00:00: every 6 [place] as on inhaler 00 (six) Medical hours as Branch needed for Wheezing or Shortness of Breath. albuterol Yes [id number] 2{puff} Inhale 2 [facility] 90 7-06 Puffs ity of mcg/actuati 00:00: every 6 [place] as on inhaler 00 (six) Medical hours as Branch needed for Wheezing or Shortness of Breath. fexofenadin Yes [id number] 360mg Take 2 [facility] e 180 mg 7-06 tablets by ity o f tablet 00:00: mouth [place] 00 daily. Medical Branch albuterol Yes [id number] 2{puff} Inhale 2 [facility] 90 7-06 Puffs ity of mcg/actuati 00:00: every 6 [place] as on inhaler 00 (six) Medical hours as Branch needed for Wheezing or Shortness of Breath. fexofenadin Yes [id number] 360mg Take 2 [facility] e 180 mg 7-06 tablets by ity o f tablet 00:00: mouth [place] 00 daily. Medical Branch albuterol Yes [id number] 2{puff} Inhale 2 [facility] 90 7-06 Puffs ity of mcg/actuati 00:00: every 6 [place] as on inhaler 00 (six) Medical hours as Branch needed for Wheezing or Shortness of Breath. fexofenadin Yes [id number] 360mg Take 2 [facility] e 180 mg 7-06 tablets by ity o f tablet 00:00: mouth [place] 00 daily. Medical Branch albuterol Yes [id number] 2{puff} Inhale 2 [facility] 90 7-06 Puffs ity of mcg/actuati 00:00: every 6 [place] as on inhaler 00 (six) Medical hours as Branch needed for Wheezing or Shortness of Breath. fexofenadin Yes [id number] 360mg Take 2 [facility] e 180 mg 7-06 tablets by ity o f tablet 00:00: mouth [place] 00 daily. Medical Branch albuterol Yes [id number] 2{puff} Inhale 2 [facility] 90 7-06 Puffs ity of mcg/actuati 00:00: every 6 [place] as on inhaler 00 (six) Medical hours as Branch needed for Wheezing or Shortness of Breath. fexofenadin Yes [id number] 360mg Take 2 [facility] e 180 mg 7-06 tablets by ity o f tablet 00:00: mouth [place] 00 daily. Medical Branch albuterol Yes [id number] 2{puff} Inhale 2 [facility] 90 7-06 Puffs ity of mcg/actuati 00:00: every 6 [place] as on inhaler 00 (six) Medical hours as Branch needed for Wheezing or Shortness of Breath. fexofenadin Yes [id number] 360mg Take 2 [facility] e 180 mg 7-06 tablets by ity o f tablet 00:00: mouth [place] 00 daily. Medical Branch albuterol Yes [id number] 2{puff} Inhale 2 [facility] 90 7-06 Puffs ity of mcg/actuati 00:00: every 6 [place] as on inhaler 00 (six) Medical hours as Branch needed for Wheezing or Shortness of Breath. fexofenadin Yes [id number] 360mg Take 2 [facility] e 180 mg 7-06 tablets by ity o f tablet 00:00: mouth [place] 00 daily. Medical Branch albuterol Yes [id number] 2{puff} Inhale 2 [facility] 90 7-06 Puffs ity of mcg/actuati 00:00: every 6 [place] on inhaler 00 (six) Medical hours as Branch needed for Wheezing or Shortness of Breath. fexofenadin Yes [id number] 360mg Take 2 [facility] e 180 mg 7-06 tablets by ity o f tablet 00:00: mouth [place] 00 daily. Medical Branch albuterol Yes [id number] 2{puff} Inhale 2 [facility] 90 7-06 Puffs ity of mcg/actuati 00:00: every 6 [place] on inhaler 00 (six) Medical hours as Branch needed for Wheezing or Shortness of Breath. fexofenadin Yes [id number] 360mg Take 2 [facility] e 180 mg 7-06 tablets by ity o f tablet 00:00: mouth [place] 00 daily. Medical Branch albuterol Yes [id number] 2{puff} Inhale 2 [facility] 90 7-06 Puffs ity of mcg/actuati 00:00: every 6 [place] on inhaler 00 (six) Medical hours as Branch needed for Wheezing or Shortness of Breath. fexofenadin Yes [id number] 360mg Take 2 [facility] e 180 mg 7-06 tablets by ity o f tablet 00:00: mouth [place] 00 daily. Medical Branch albuterol Yes [id number] 2{puff} Inhale 2 [facility] 90 7-06 Puffs ity of mcg/actuati 00:00: every 6 [place] as on inhaler 00 (six) Medical hours as Branch needed for Wheezing or Shortness of Breath. fexofenadin Yes [id number] 360mg Take 2 [facility] e 180 mg 7-06 tablets by ity o f tablet 00:00: mouth [place] 00 daily. Medical Branch albuterol Yes [id number] 2{puff} Inhale 2 [facility] 90 7-06 Puffs ity of mcg/actuati 00:00: every 6 [place] on inhaler 00 (six) Medical hours as Branch needed for Wheezing or Shortness of Breath. fexofenadin Yes [id number] 360mg Take 2 [facility] e 180 mg 7-06 tablets by ity o f tablet 00:00: mouth [place] 00 daily. Medical Branch albuterol Yes [id number] 2{puff} Inhale 2 [facility] 90 7-06 Puffs ity of mcg/actuati 00:00: every 6 [place] as on inhaler 00 (six) Medical hours as Branch needed for Wheezing or Shortness of Breath. fexofenadin Yes [id number] 360mg Take 2 [facility] e 180 mg 7-06 tablets by ity o f tablet 00:00: mouth [place] 00 daily. Medical Branch albuterol Yes [id number] 2{puff} Inhale 2 [facility] 90 7-06 Puffs ity of mcg/actuati 00:00: every 6 [place] on inhaler 00 (six) Medical hours as Branch needed for Wheezing or Shortness of Breath. fexofenadin Yes [id number] 360mg Take 2 [facility] e 180 mg 7-06 tablets by ity o f tablet 00:00: mouth [place] 00 daily. Medical Branch albuterol Yes [id number] 2{puff} Inhale 2 [facility] 90 7-06 Puffs ity of mcg/actuati 00:00: every 6 [place] on inhaler 00 (six) Medical hours as Branch needed for Wheezing or Shortness of Breath. fexofenadin Yes [id number] 360mg Take 2 [facility] e 180 mg 7-06 tablets by ity o f tablet 00:00: mouth [place] 00 daily. Medical Branch albuterol Yes [id number] 2{puff} Inhale 2 [facility] 90 7-06 Puffs ity of mcg/actuati 00:00: every 6 [place] on inhaler 00 (six) Medical hours as Branch needed for Wheezing or Shortness of Breath. fexofenadin Yes [id number] 360mg Take 2 [facility] e 180 mg 7-06 tablets by ity o f tablet 00:00: mouth [place] 00 daily. Medical Branch albuterol Yes [id number] 2{puff} Inhale 2 [facility] 90 7-06 Puffs ity of mcg/actuati 00:00: every 6 [place] on inhaler 00 (six) Medical hours as Branch needed for Wheezing or Shortness of Breath. fexofenadin Yes [id number] 360mg Take 2 [facility] e 180 mg 7-06 tablets by ity o f tablet 00:00: mouth [place] 00 daily. Medical Branch albuterol Yes [id number] 2{puff} Inhale 2 [facility] 90 7-06 Puffs ity of mcg/actuati 00:00: every 6 [place] on inhaler 00 (six) Medical hours as Branch needed for Wheezing or Shortness of Breath. fexofenadin Yes [id number] 360mg Take 2 [facility] e 180 mg 7-06 tablets by ity o f tablet 00:00: mouth [place] 00 daily. Medical Branch albuterol Yes [id number] 2{puff} Inhale 2 [facility] 90 7-06 Puffs ity of mcg/actuati 00:00: every 6 [place] on inhaler 00 (six) Medical hours as Branch needed for Wheezing or Shortness of Breath. fexofenadin Yes [id number] 360mg Take 2 [facility] e 180 mg 7-06 tablets by ity o f tablet 00:00: mouth [place] 00 daily. Medical Branch albuterol Yes [id number] 2{puff} Inhale 2 [facility] 90 7-06 Puffs ity of mcg/actuati 00:00: every 6 [place] on inhaler 00 (six) Medical hours as Branch needed for Wheezing or Shortness of Breath. albuterol Yes [id number] 2{puff} Inhale 2 [facility] 90 7-06 Puffs ity of mcg/actuati 00:00: every 6 [place] on inhaler 00 (six) Medical hours as Branch needed for Wheezing or Shortness of Breath. albuterol Yes [id number] 2{puff} Inhale 2 [facility] 90 7-06 Puffs ity of mcg/actuati 00:00: every 6 [place] on inhaler 00 (six) Medical hours as Branch needed for Wheezing or Shortness of Breath. albuterol Yes [id number] 2{puff} Inhale 2 [facility] 90 7-06 Puffs ity of mcg/actuati 00:00: every 6 [place] on inhaler 00 (six) Medical hours as Branch needed for Wheezing or Shortness of Breath. albuterol Yes [id number] 2{puff} Inhale 2 [facility] 90 7-06 Puffs ity of mcg/actuati 00:00: every 6 [place] on inhaler 00 (six) Medical hours as Branch needed for Wheezing or Shortness of Breath. albuterol Yes [id number] 2{puff} Inhale 2 [facility] 90 7-06 Puffs ity of mcg/actuati 00:00: every 6 [place] on inhaler 00 (six) Medical hours as Branch needed for Wheezing or Shortness of Breath. albuterol Yes [id number] 2{puff} Inhale 2 [facility] 90 7-06 Puffs ity of mcg/actuati 00:00: every 6 [place] on inhaler 00 (six) Medical hours as Branch needed for Wheezing or Shortness of Breath. albuterol Yes [id number] 2{puff} Inhale 2 [facility] 90 7-06 Puffs ity of mcg/actuati 00:00: every 6 [place] on inhaler 00 (six) Medical hours as Branch needed for Wheezing or Shortness of Breath. fexofenadin 2022- No [id number] 360mg Take 2 [facility] e 180 mg 7 07-12 tablets by ity of tablet 00:00: 00:00 mouth [place] 00 :00 daily. Medical Branch fexofenadin 2022- No [id number] 360mg Take 2 [facility] e 180 mg 7- 07-12 tablets by ity of tablet 00:00: 00:00 mouth [place] 00 :00 daily. Medical Branch doxycycline 2022- No [id number] 100mg Q.5D Take 1 [facility] (Monodox) 1-28 06- capsule Health 100 MG 00:00: 05:59 (100 mg capsule 00 :00 total) by mouth 2 (two) times a day. doxycycline 2021- No [id number] 100mg Q.5D Take 1 [facility] (Monodox) 1-20 10-05 capsule Health 100 MG 00:00: 00:00 (100 mg capsule 00 :00 total) by mouth 2 (two) times a day. doxycycline 2021- No [id number] 100mg Q.5D Take 1 [facility] (Monodox) 1-20 10-05 capsule Health 100 MG 00:00: 00:00 (100 mg capsule 00 :00 total) by mouth 2 (two) times a day. NUCALA 100 2021-0 Yes INJECT THE U nivers mg/mL AtIn 1-18 CONTENTS ity o f 00:00: OF 3 PENS [place] 00 (300 MG) Medical UNDER THE Branch SKIN EVERY 4 WEEKS NUCALA 100 2021-0 Yes INJECT THE U nivers mg/mL AtIn 1-18 CONTENTS ity o f 00:00: OF 3 PENS [place] 00 (300 MG) Medical UNDER THE Branch SKIN EVERY 4 WEEKS NUCALA 100 2021-0 202- No INJECT THE [facility] mg/mL AtIn 1-18 08-15 CONTENTS ity of 00:00: 00:00 OF 3 PENS [place] 00 :00 (300 MG) Medical UNDER THE Branch SKIN EVERY 4 WEEKS chloroquine 2021-0 Yes [id number] 125mg QD Take 0.5 [facility] (Aralen) 1-12 tablets Health 250 MG 00:00: (125 mg tablet 00 total) by mouth 1 (one) time each day. folic acid 0 Yes [id number] 1mg QD Take 1 [facility] (Folvite) 1 1-12 tablet (1 [facility]a l[facility] MG tablet 00:00: mg total) 00 by mouth 1 (one) time each day. methotrexat 2021-0 Yes [id number] Take 8 [facility] e 2.5 MG 1-12 pills Health tablet 00:00: every Friday chloroquine 2021-0 Yes [id number] 125mg QD Take 0.5 [facility] (Aralen) 1-12 tablets Health 250 MG 00:00: (125 mg tablet 00 total) by mouth 1 (one) time each day. folic acid 2021-0 Yes [id number] 1mg QD Take 1 [facility] (Folvite) 1 1-12 tablet (1 Hea lth MG tablet 00:00: mg total) 00 by mouth 1 (one) time each day. methotrexat 2021-0 Yes [id number] Take 8 [facility] e 2.5 MG 1-12 pills Health tablet 00:00: every Friday folic acid 2021-0 Yes [id number] 1mg QD Take 1 [facility] (Folvite) 1 1-12 tablet (1 [facility]a lth MG tablet 00:00: mg total) 00 by mouth 1 (one) time each day. methotrexat 2021-0 Yes [id number] Take 8 [facility] e 2.5 MG 1-12 pills Health tablet 00:00: every 00 friday folic acid Yes [id number] 1mg QD Take 1 [facility] (Folvite) 1 1-12 tablet (1 Hea lth MG tablet 00:00: mg total) 00 by mouth 1 (one) time each day. methotrexat Yes [id number] Take 8 [facility] e 2.5 MG 1-12 pills Health tablet 00:00: every 00 friday folic acid 0 Yes [id number] 1mg QD Take 1 [facility] (Folvite) 1 1-12 tablet (1 Hea lth MG tablet 00:00: mg total) 00 by mouth 1 (one) time each day. methotrexat Yes [id number] Take 8 [facility] e 2.5 MG 1-12 pills Health tablet 00:00: every 00 friday methotrexat 3- No [id number] Take 8 [facility] e 2.5 MG -05 14-14 pills Health tablet 00:00: 00:00 every 00 :Friday folic acid 2022- No [id number] 1mg QD Take 1 [facility] (Folvite) 1 -05 14-14 tablet (1 He alth MG tablet 00:00: 00:00 mg total) 00 :00 by mouth 1 (one) time each day. chloroquine 2022- No [id number] 125mg QD Take 0.5 [facility] (Aralen) 06-2013 tablets Health 250 MG 00:00: 00:00 (125 mg tablet 00 :00 total) by mouth 1 (one) time each day. chloroquine 2022- No [id number] 125mg QD Take 0.5 [facility] (Aralen) 06-20-13 tablets Health 250 MG 00:00: 00:00 (125 mg tablet 00 :00 total) by mouth 1 (one) time each day. chloroquine 2022- No [id number] 125mg QD Take 0.5 [facility] (Aralen) 06-20-13 tablets Health 250 MG 00:00: 00:00 (125 mg tablet 00 :00 total) by mouth 1 (one) time each day. fluticasone Yes [id number] 2{spray Use 2 [facility] propionate 1-05 } Sprays in ity of (FLONASE 00:00: each [place] ALLERGY 00 nostril Medical RELIEF) 50 daily. Branch mcg/actuati on nasal spray montelukast Yes [id number] 10mg Take 1 [facility] 10 mg 1-05 tablet by ity of tablet 00:00: mouth [place] 00 every Medical morning. Branch EPINEPHrine Yes [id number] .3mg 0.3 mL by [facility] (EPIPEN) 1-05 Intramuscu ity o f 0.3 mg/0.3 00:00: lar route [place] mL 00 as needed Medical injection (anaphylax Bran ch is). fluticasone Yes [id number] 2{spray Use 2 [facility] propionate 1-05 } Sprays in ity of (FLONASE 00:00: each [place] ALLERGY 00 nostril Medical RELIEF) 50 daily. Branch mcg/actuati on nasal spray montelukast Yes [id number] 10mg Take 1 [facility] 10 mg 1-05 tablet by ity of tablet 00:00: mouth [place] 00 every Medical morning. Branch EPINEPHrine Yes [id number] .3mg 0.3 mL by [facility] (EPIPEN) 1-05 Intramuscu ity o f 0.3 mg/0.3 00:00: lar route [place] mL 00 as needed Medical injection (anaphylax Bran ch is). fluticasone Yes [id number] 2{spray Use 2 [facility] propionate 1-05 } Sprays in ity of (FLONASE 00:00: each [place] ALLERGY 00 nostril Medical RELIEF) 50 daily. Branch mcg/actuati on nasal spray montelukast Yes [id number] 10mg Take 1 [facility] 10 mg 1-05 tablet by ity of tablet 00:00: mouth [place] 00 every Medical morning. Branch EPINEPHrine Yes [id number] .3mg 0.3 mL by [facility] (EPIPEN) 1-05 Intramuscu ity o f 0.3 mg/0.3 00:00: lar route [place] mL 00 as needed Medical injection (anaphylax Bran ch is). fluticasone Yes [id number] 2{spray Use 2 [facility] propionate 1-05 } Sprays in ity of (FLONASE 00:00: each [place] ALLERGY 00 nostril Medical RELIEF) 50 daily. Branch mcg/actuati on nasal spray montelukast Yes [id number] 10mg Take 1 [facility] 10 mg 1-05 tablet by ity of tablet 00:00: mouth [place] 00 every Medical morning. Branch EPINEPHrine 0 Yes [id number] .3mg 0.3 mL by [facility] (EPIPEN) 1-05 Intramuscu ity o f 0.3 mg/0.3 00:00: lar route [place] mL 00 as needed Medical injection (anaphylax Bran ch is). fluticasone Yes [id number] 2{spray Use 2 [facility] propionate 1-05 } Sprays in ity of (FLONASE 00:00: each [place] ALLERGY 00 nostril Medical RELIEF) 50 daily. Branch mcg/actuati on nasal spray montelukast Yes [id number] 10mg Take 1 [facility] 10 mg 1-05 tablet by ity of tablet 00:00: mouth [place] 00 every Medical morning. Branch EPINEPHrine Yes [id number] .3mg 0.3 mL by [facility] (EPIPEN) 1-05 Intramuscu ity o f 0.3 mg/0.3 00:00: lar route [place] mL 00 as needed Medical injection (anaphylax Bran ch is). fluticasone Yes [id number] 2{spray Use 2 [facility] propionate 1-05 } Sprays in ity of (FLONASE 00:00: each [place] ALLERGY 00 nostril Medical RELIEF) 50 daily. Branch mcg/actuati on nasal spray montelukast Yes [id number] 10mg Take 1 [facility] 10 mg 1-05 tablet by ity of tablet 00:00: mouth [place] 00 every Medical morning. Branch EPINEPHrine Yes [id number] .3mg 0.3 mL by [facility] (EPIPEN) 1-05 Intramuscu ity o f 0.3 mg/0.3 00:00: lar route [place] mL 00 as needed Medical injection (anaphylax Bran ch is). fluticasone Yes [id number] 2{spray Use 2 [facility] propionate 1-05 } Sprays in ity of (FLONASE 00:00: each [place] ALLERGY 00 nostril Medical RELIEF) 50 daily. Branch mcg/actuati on nasal spray montelukast Yes [id number] 10mg Take 1 [facility] 10 mg 1-05 tablet by ity of tablet 00:00: mouth [place] 00 every Medical morning. Branch EPINEPHrine 0 Yes [id number] .3mg 0.3 mL by [facility] (EPIPEN) 1-05 Intramuscu ity o f 0.3 mg/0.3 00:00: lar route [place] mL 00 as needed Medical injection (anaphylax Bran ch is). fluticasone Yes [id number] 2{spray Use 2 [facility] propionate 1-05 } Sprays in ity of (FLONASE 00:00: each [place] ALLERGY 00 nostril Medical RELIEF) 50 daily. Branch mcg/actuati on nasal spray montelukast Yes [id number] 10mg Take 1 [facility] 10 mg 1-05 tablet by ity of tablet 00:00: mouth [place] 00 every Medical morning. Branch EPINEPHrine Yes [id number] .3mg 0.3 mL by [facility] (EPIPEN) 1-05 Intramuscu ity o f 0.3 mg/0.3 00:00: lar route [place] mL 00 as needed Medical injection (anaphylax Bran ch is). fluticasone Yes [id number] 2{spray Use 2 [facility] propionate 1-05 } Sprays in ity of (FLONASE 00:00: each [place] ALLERGY 00 nostril Medical RELIEF) 50 daily. Branch mcg/actuati on nasal spray montelukast Yes [id number] 10mg Take 1 [facility] 10 mg 1-05 tablet by ity of tablet 00:00: mouth [place] 00 every Medical morning. Branch EPINEPHrine 0 Yes [id number] .3mg 0.3 mL by [facility] (EPIPEN) 1-05 Intramuscu ity o f 0.3 mg/0.3 00:00: lar route [place] mL 00 as needed Medical injection (anaphylax Bran ch is). fluticasone 2021-0 Yes [id number] 2{spray Use 2 [facility] propionate 1-05 } Sprays in ity of (FLONASE 00:00: each [place] ALLERGY 00 nostril Medical RELIEF) 50 daily. Branch mcg/actuati on nasal spray montelukast Yes [id number] 10mg Take 1 [facility] 10 mg 1-05 tablet by ity of tablet 00:00: mouth [place] 00 every Medical morning. Branch EPINEPHrine Yes [id number] .3mg 0.3 mL by [facility] (EPIPEN) 1-05 Intramuscu ity o f 0.3 mg/0.3 00:00: lar route [place] mL 00 as needed Medical injection (anaphylax Bran ch is). fluticasone Yes [id number] 2{spray Use 2 [facility] propionate 1-05 } Sprays in ity of (FLONASE 00:00: each [place] ALLERGY 00 nostril Medical RELIEF) 50 daily. Branch mcg/actuati on nasal spray EPINEPHrine Yes [id number] .3mg 0.3 mL by [facility] (EPIPEN) 1-05 Intramuscu ity o f 0.3 mg/0.3 00:00: lar route [place] mL 00 as needed Medical injection (anaphylax Bran ch is). fluticasone Yes [id number] 2{spray Use 2 [facility] propionate 1-05 } Sprays in ity of (FLONASE 00:00: each [place] ALLERGY 00 nostril Medical RELIEF) 50 daily. Branch mcg/actuati on nasal spray EPINEPHrine Yes [id number] .3mg 0.3 mL by [facility] (EPIPEN) 1-05 Intramuscu ity o f 0.3 mg/0.3 00:00: lar route [place] mL 00 as needed Medical injection (anaphylax Bran ch is). fluticasone Yes [id number] 2{spray Use 2 [facility] propionate 1-05 } Sprays in ity of (FLONASE 00:00: each [place] ALLERGY 00 nostril Medical RELIEF) 50 daily. Branch mcg/actuati on nasal spray EPINEPHrine Yes [id number] .3mg 0.3 mL by [facility] (EPIPEN) 1-05 Intramuscu ity o f 0.3 mg/0.3 00:00: lar route [place] mL 00 as needed Medical injection (anaphylax Bran ch is). fluticasone Yes [id number] 2{spray Use 2 [facility] propionate 1-05 } Sprays in ity of (FLONASE 00:00: each [place] ALLERGY 00 nostril Medical RELIEF) 50 daily. Branch mcg/actuati on nasal spray EPINEPHrine Yes [id number] .3mg 0.3 mL by [facility] (EPIPEN) 1-05 Intramuscu ity o f 0.3 mg/0.3 00:00: lar route [place] mL 00 as needed Medical injection (anaphylax Bran ch is). fluticasone Yes [id number] 2{spray Use 2 [facility] propionate 1-05 } Sprays in ity of (FLONASE 00:00: each [place] ALLERGY 00 nostril Medical RELIEF) 50 daily. Branch mcg/actuati on nasal spray EPINEPHrine Yes [id number] .3mg 0.3 mL by [facility] (EPIPEN) 1-05 Intramuscu ity o f 0.3 mg/0.3 00:00: lar route [place] mL 00 as needed Medical injection (anaphylax Bran ch is). fluticasone Yes [id number] 2{spray Use 2 [facility] propionate 1-05 } Sprays in ity of (FLONASE 00:00: each [place] ALLERGY 00 nostril Medical RELIEF) 50 daily. Branch mcg/actuati on nasal spray EPINEPHrine Yes [id number] .3mg 0.3 mL by [facility] (EPIPEN) 1-05 Intramuscu ity o f 0.3 mg/0.3 00:00: lar route [place] mL 00 as needed Medical injection (anaphylax Bran ch is). fluticasone Yes [id number] 2{spray Use 2 [facility] propionate 1-05 } Sprays in ity of (FLONASE 00:00: each [place] ALLERGY 00 nostril Medical RELIEF) 50 daily. Branch mcg/actuati on nasal spray EPINEPHrine Yes [id number] .3mg 0.3 mL by [facility] (EPIPEN) 1-05 Intramuscu ity o f 0.3 mg/0.3 00:00: lar route [place] mL 00 as needed Medical injection (anaphylax Bran ch is). fluticasone Yes [id number] 2{spray Use 2 [facility] propionate 1-05 } Sprays in ity of (FLONASE 00:00: each [place] ALLERGY 00 nostril Medical RELIEF) 50 daily. Branch mcg/actuati on nasal spray EPINEPHrine Yes [id number] .3mg 0.3 mL by [facility] (EPIPEN) 1-05 Intramuscu ity o f 0.3 mg/0.3 00:00: lar route [place] mL 00 as needed Medical injection (anaphylax Bran ch is). fluticasone Yes [id number] 2{spray Use 2 [facility] propionate 1-05 } Sprays in ity of (FLONASE 00:00: each [place] ALLERGY 00 nostril Medical RELIEF) 50 daily. Branch mcg/actuati on nasal spray EPINEPHrine Yes [id number] .3mg 0.3 mL by [facility] (EPIPEN) 1-05 Intramuscu ity o f 0.3 mg/0.3 00:00: lar route [place] mL 00 as needed Medical injection (anaphylax Bran ch is). fluticasone Yes [id number] 2{spray Use 2 [facility] propionate 1-05 } Sprays in ity of (FLONASE 00:00: each [place] ALLERGY 00 nostril Medical RELIEF) 50 daily. Branch mcg/actuati on nasal spray EPINEPHrine Yes [id number] .3mg 0.3 mL by [facility] (EPIPEN) 1-05 Intramuscu ity o f 0.3 mg/0.3 00:00: lar route [place] mL 00 as needed Medical injection (anaphylax Bran ch is). fluticasone Yes [id number] 2{spray Use 2 [facility] propionate 1-05 } Sprays in ity of (FLONASE 00:00: each [place] ALLERGY 00 nostril Medical RELIEF) 50 daily. Branch mcg/actuati on nasal spray EPINEPHrine Yes [id number] .3mg 0.3 mL by [facility] (EPIPEN) 1-05 Intramuscu ity o f 0.3 mg/0.3 00:00: lar route [place] mL 00 as needed Medical injection (anaphylax Bran ch is). fluticasone Yes [id number] 2{spray Use 2 [facility] propionate 1-05 } Sprays in ity of (FLONASE 00:00: each [place] ALLERGY 00 nostril Medical RELIEF) 50 daily. Branch mcg/actuati on nasal spray EPINEPHrine Yes [id number] .3mg 0.3 mL by [facility] (EPIPEN) 1-05 Intramuscu ity o f 0.3 mg/0.3 00:00: lar route [place] mL 00 as needed Medical injection (anaphylax Bran ch is). fluticasone Yes [id number] 2{spray Use 2 [facility] propionate 1-05 } Sprays in ity of (FLONASE 00:00: each [place] ALLERGY 00 nostril Medical RELIEF) 50 daily. Branch mcg/actuati on nasal spray EPINEPHrine Yes [id number] .[id number] 0.3 mL by [facility] (EPIPEN) 1-05 Intramuscu ity o f 0.3 mg/0.3 00:00: lar route [place] mL 00 as needed Medical injection (anaphylax Bran ch is). fluticasone Yes [id number] 2{spray Use 2 [facility] propionate 1-05 } Sprays in ity of (FLONASE 00:00: each [place] ALLERGY 00 nostril Medical RELIEF) 50 daily. Branch mcg/actuati on nasal spray EPINEPHrine Yes [id number] .[id number] 0.3 mL by Univers (EPIPEN) 1-05 Intramuscu ity o f 0.3 mg/0.3 00:00: lar route [place] mL 00 as needed Medical injection (anaphylax Bran ch is). fluticasone Yes [id number] 2{spray Use 2 [facility] propionate 1-05 } Sprays in ity of (FLONASE 00:00: each [place] ALLERGY 00 nostril Medical RELIEF) 50 daily. Branch mcg/actuati on nasal spray EPINEPHrine Yes [id number] .[id number] 0.3 mL by Univers (EPIPEN) 1-05 Intramuscu ity o f 0.3 mg/0.3 00:00: lar route [place] mL 00 as needed Medical injection (anaphylax Bran ch is). fluticasone Yes [id number] 2{spray Use 2 [facility] propionate 1-05 } Sprays in ity of (FLONASE 00:00: each [place] ALLERGY 00 nostril Medical RELIEF) 50 daily. Branch mcg/actuati on nasal spray EPINEPHrine Yes [id number] .[id number] 0.3 mL by [facility] (EPIPEN) 1-05 Intramuscu ity o f 0.3 mg/0.3 00:00: lar route [place] mL 00 as needed Medical injection (anaphylax Bran ch is). fluticasone Yes [id number] 2{spray Use 2 [facility] propionate 1-05 } Sprays in ity of (FLONASE 00:00: each [place] ALLERGY 00 nostril Medical RELIEF) 50 daily. Branch mcg/actuati on nasal spray EPINEPHrine Yes [id number] .3mg 0.3 mL by [facility] (EPIPEN) 1-05 Intramuscu ity o f 0.3 mg/0.3 00:00: lar route [place] mL 00 as needed Medical injection (anaphylax Bran ch is). fluticasone Yes [id number] 2{spray Use 2 [facility] propionate 1-05 } Sprays in ity of (FLONASE 00:00: each [place] ALLERGY 00 nostril Medical RELIEF) 50 daily. Branch mcg/actuati on nasal spray EPINEPHrine Yes [id number] .[id number] 0.3 mL by [facility] (EPIPEN) 1-05 Intramuscu ity o f 0.3 mg/0.3 00:00: lar route [place] mL 00 as needed Medical injection (anaphylax Bran ch is). fluticasone Yes [id number] 2{spray Use 2 [facility] propionate 1-05 } Sprays in ity of (FLONASE 00:00: each [place] ALLERGY 00 nostril Medical RELIEF) 50 daily. Branch mcg/actuati on nasal spray EPINEPHrine Yes [id number] .[id number] 0.3 mL by Univers (EPIPEN) 1-05 Intramuscu ity o f 0.3 mg/0.3 00:00: lar route [place] mL 00 as needed Medical injection (anaphylax Bran ch is). fluticasone Yes [id number] 2{spray Use 2 [facility] propionate 1-05 } Sprays in ity of (FLONASE 00:00: each [place] ALLERGY 00 nostril Medical RELIEF) 50 daily. Branch mcg/actuati on nasal spray EPINEPHrine Yes [id number] .[id number] 0.3 mL by [facility] (EPIPEN) 1-05 Intramuscu ity o f 0.3 mg/0.3 00:00: lar route [place] mL 00 as needed Medical injection (anaphylax Bran ch is). fluticasone Yes [id number] 2{spray Use 2 [facility] propionate 05 } Sprays in ity of (FLONASE 00:00: each [place] ALLERGY 00 nostril Medical RELIEF) 50 daily. Branch mcg/actuati on nasal spray EPINEPHrine Yes [id number] .[id number] 0.3 mL by [facility] (EPIPEN) 1-05 Intramuscu ity o f 0.3 mg/0.3 00:00: lar route [place] mL 00 as needed Medical injection (anaphylax Bran ch is). montelukast 2022- No [id number] 10mg Take 1 [facility] 10 mg 06-13 tablet by ity of tablet 00:00: 00:00 mouth [place] 00 :00 every Medical morning. [facility] montelukast 2022- No [id number] 10mg Take 1 [facility] 10 mg 06-13 tablet by ity of tablet 00:00: 00:00 mouth [place] 00 :00 every Medical morning. [place] montelukast 2022- No [id number] 10mg Take 1 [facility] 10 mg 06-13 tablet by ity of tablet 00:00: 00:00 mouth [place] 00 :00 every Medical morning. [facility] chloroquine 2020-06- No [id number] 125mg QD Take 0.5 [facility] (Aralen) 06-18 tablets Health 250 MG 00:00: 00:00 (125 mg tablet 00 :00 total) by mouth 1 (one) time each day. methotrexat 2020-06- No [id number] Take 8 UT e 2.5 MG 06-18 pills Health tablet 00:00: 00:00 every 00 :00 friday chloroquine 2020-06- No [id number] 125mg QD Take 0.5 [facility] ([place]) 06-18 tablets Health 250 MG 00:00: 00:00 (125 mg tablet 00 :00 total) by mouth 1 (one) time each day. methotrexat 2020-06- No [id number] Take 8 UT e 2.5 MG 1-10 -12 pills Health tablet 00:00: 00:00 every 00 :Friday methotrexat 2020- No [id number] Take 8 UT e 2.5 MG 8-10 11-10 pills Health tablet 00:00: 00:00 every 00 :Friday methotrexat 2020- No [id number] Take 8 UT e 2.5 MG 8-10 11-10 pills Health tablet 00:00: 00:00 every 00 :Friday spironolact Yes [id number] 50mg QD Take 1 [facility] one 6-19 tablet (50 Health (Aldactone) 00:00: mg total) 50 MG 00 by mouth 1 tablet (one) time each day. spironolact 2021- No [id number] 50mg QD Take 1 [facility] one -25 01-11 tablet (50 Health (Aldactone) 00:00: 00:00 mg total) 50 MG 00 :00 by mouth 1 tablet (one) time each day. spironolact 2021- No [id number] 50mg QD Take 1 [facility] one -25 01-11 tablet (50 Health (Aldactone) 00:00: 00:00 mg total) 50 MG 00 :00 by mouth 1 tablet (one) time each day. spironolact 2021- No [id number] 50mg QD Take 1 [facility] one -25 01-11 tablet (50 Health (Aldactone) 00:00: 00:00 mg total) 50 MG 00 :00 by mouth 1 tablet (one) time each day. ammonium 2021- No [id number] Apply [facility] lactate - 06-20 topically Health (Lac-Hydrin 00:00: 04:59 if needed ) 12 % 00 :00 for dry cream skin. ammonium 2- No [id number] Apply [facility] lactate 6- 06-20 topically Health (Lac-Hydrin 00:00: 04:59 if needed ) 12 % 00 :00 for dry cream skin. ammonium 2021- No [id number] Apply [facility] lactate 11-25-20 topically Health (Lac-Hydrin 00:00: 04:59 if needed ) 12 % 00 :00 for dry cream skin. spironolact 2021- No [id number] 50mg QD Take 1 [facility] one 11-25 tablet (50 Health (Aldactone) 00:00: 04:59 mg total) 50 MG 00 :00 by mouth 1 tablet (one) time each day. ammonium 2021- No [id number] Apply [facility] lactate 11-25 topically Health (Lac-Hydrin 00:00: 04:59 if needed ) 12 % 00 :00 for dry cream skin. spironolact 2021- No [id number] 50mg QD Take 1 [facility] one 11-25 tablet (50 Health (Aldactone) 00:00: 04:59 mg total) 50 MG 00 :00 by mouth 1 tablet (one) time each day. clindamycin 2020- No [id number] Q.5D Apply [facility] -benzoyl 11-25 topically Healt h peroxide 00:00: 04:59 2 (two) (BenzaClin) 00 :00 times a gel day. clindamycin 2020- No [id number] Q.5D Apply [facility] -benzoyl 11-25 topically Healt h peroxide 00:00: 04:59 2 (two) (BenzaClin) 00 :00 times a gel day. metFORMIN Yes [facility] (Glucophage 6-14 Health ) 500 MG 00:00: tablet 00 metFORMIN 0 Yes [facility] (Glucophage 6-14 Health ) 500 MG 00:00: tablet 00 metFORMIN 0 Yes [facility] (Glucophage 6-14 Health ) 500 MG 00:00: tablet 00 metFORMIN 2020-0 2021- No [facility] (Glucophage 6-14 10-05 Health ) 500 MG 00:00: 00:00 tablet 00 :00 metFORMIN 2020-0 2021- No [facility] (Glucophage 6-14 10-05 Health ) 500 MG 00:00: 00:00 tablet 00 :00 metFORMIN 2020-0 2021- No [facility] (Glucophage 6-14 10-05 Health ) 500 MG 00:00: 00:00 tablet 00 :00 Driss Fe 2021-0 Yes 1{tbl} QD Take 1 [facility] 1/20 1-20 6-05 tablet by Healt h MG-MCG 00:00: mouth 1 tablet 00 (one) time each day. Driss Fe 2021-0 Yes 1{tbl} QD Take 1 [facility] 1/20 1-20 6-05 tablet by Healt h MG-MCG 00:00: mouth 1 tablet 00 (one) time each day. Driss Fe 2021-0 Yes 1{tbl} QD Take 1 UT 1/20 1-20 6-05 tablet by Healt h MG-MCG 00:00: mouth 1 tablet 00 (one) time each day. Driss Fe 2021-0 Yes 1{tbl} QD Take 1 UT 1/20 1-20 6-05 tablet by Healt h MG-MCG 00:00: mouth 1 tablet 00 (one) time each day. Driss Fe 2021-0 Yes 1{tbl} QD Take 1 UT 1/20 1-20 6-05 tablet by Healt h MG-MCG 00:00: mouth 1 tablet 00 (one) time each day. Driss Fe 2021-0 Yes 1{tbl} QD Take 1 UT 1/20 1-20 6-05 tablet by Healt h MG-MCG 00:00: mouth 1 tablet 00 (one) time each day. Driss Fe 2021-0 Yes 1{tbl} QD Take 1 UT 1/20 1-20 6-05 tablet by Healt h MG-MCG 00:00: mouth 1 tablet 00 (one) time each day. Driss Fe 2021-0 Yes 1{tbl} QD Take 1 UT 1/20 1-20 6-05 tablet by Healt h MG-MCG 00:00: mouth 1 tablet 00 (one) time each day. Driss Fe 2021-0 Yes 1{tbl} QD Take 1 UT 1/20 1-20 6-05 tablet by Healt h MG-MCG 00:00: mouth 1 tablet 00 (one) time each day. Nucala 100 2021-0 Yes UT MG/ML 5-17 Health solution 00:00: auto-inject 00 or Nucala 100 2021-0 Yes UT MG/ML 5-17 Health solution 00:00: auto-inject 00 or Nucala 100 2021-0 Yes UT MG/ML 5-17 Health solution 00:00: auto-inject 00 or Nucala 100 2020-0 Yes UT MG/ML 5-17 Health solution 00:00: auto-inject 00 or Nucala 100 2020-0 Yes UT MG/ML 5-17 Health solution 00:00: auto-inject 00 or Nucala 100 1-0 Yes UT MG/ML 5-17 Health solution 00:00: auto-inject 00 or Nucala 100 2020-0 Yes UT MG/ML 5-17 Health solution 00:00: auto-inject 00 or Nucala 100 2020-0 Yes UT MG/ML 5-17 Health solution 00:00: auto-inject 00 or Nucala 100 2020-0 Yes UT MG/ML 5-17 Health solution 00:00: auto-inject 00 or pantoprazol 0 Yes TAKE ONE UT e 5-12 (1) Health (ProtoNix) 00:00: TABLET(S) 40 MG EC 00 BY MOUTH tablet ONCE A DAY A HALF HOUR BEFORE BREAKFAST OR FIRST MEAL. pantoprazol Yes TAKE ONE UT e 5-12 (1) Health (ProtoNix) 00:00: TABLET(S) 40 MG EC 00 BY MOUTH tablet ONCE A DAY A HALF HOUR BEFORE BREAKFAST OR FIRST MEAL. pantoprazol Yes TAKE ONE [facility] e 5-12 (1) Health (ProtoNix) 00:00: TABLET(S) 40 MG EC 00 BY MOUTH tablet ONCE A DAY A HALF HOUR BEFORE BREAKFAST OR FIRST MEAL. pantoprazol Yes TAKE ONE UT e 5-12 (1) Health (ProtoNix) 00:00: TABLET(S) 40 MG EC 00 BY MOUTH tablet ONCE A DAY A HALF HOUR BEFORE BREAKFAST OR FIRST MEAL. pantoprazol Yes TAKE ONE UT e 5-12 (1) Health (ProtoNix) 00:00: TABLET(S) 40 MG EC 00 BY MOUTH tablet ONCE A DAY A HALF HOUR BEFORE BREAKFAST OR FIRST MEAL. pantoprazol Yes TAKE ONE UT e 5-12 (1) Health (ProtoNix) 00:00: TABLET(S) 40 MG EC 00 BY MOUTH tablet ONCE A DAY A HALF HOUR BEFORE BREAKFAST OR FIRST MEAL. pantoprazol Yes TAKE ONE UT e 5-12 (1) Health (ProtoNix) 00:00: TABLET(S) 40 MG EC 00 BY MOUTH tablet ONCE A DAY A HALF HOUR BEFORE BREAKFAST OR FIRST MEAL. pantoprazol Yes TAKE ONE UT e 5-12 (1) Health (ProtoNix) 00:00: TABLET(S) 40 MG EC 00 BY MOUTH tablet ONCE A DAY A HALF HOUR BEFORE BREAKFAST OR FIRST MEAL. pantoprazol 0 Yes TAKE ONE UT e 5-12 (1) Health (ProtoNix) 00:00: TABLET(S) 40 MG EC 00 BY MOUTH tablet ONCE A DAY A HALF HOUR BEFORE BREAKFAST OR FIRST MEAL. cycloSPORIN 0 Yes 100mg Take 100 U nivers E, 5-10 mg by ity of SandIMMUNE, 08:13: mouth [place] 100 mg 44 daily. capsule [facility] chloroquine 0 Yes 250mg Take 250 U nivers phosphate 5-10 mg by ity of (ARALEN) 08:13: mouth [place] 250 mg 44 daily. tablet [facility] folic acid 0 Yes 1mg Take 1 mg Un christel (FOLVITE) 1 5-10 by mouth ity of mg tablet 08:13: daily. [place] 44 [facility] cycloSPORIN 0 Yes 100mg Take 100 U nivers E, 5-10 mg by ity of SandIMMUNE, 08:13: mouth [place] 100 mg 44 daily. capsule [facility] chloroquine 0 Yes 250mg Take 250 U nivers phosphate 5-10 mg by ity of (ARALEN) 08:13: mouth [place] 250 mg 44 daily. tablet [facility] folic acid 0 Yes 1mg Take 1 mg Un christel (FOLVITE) 1 5-10 by mouth ity of mg tablet 08:13: daily. [place] 44 [facility] pantoprazol Yes TAKE ONE Un christel e 4-12 (1) ity of (PROTONIX) 00:00: TABLET(S) [place] 40 mg EC 00 BY MOUTH tablet ONCE A DAY [place] A HALF n HOUR Cancer BEFORE Center BREAKFAST OR FIRST MEAL. pantoprazol Yes TAKE ONE Un christel e 4-12 (1) ity of (PROTONIX) 00:00: TABLET(S) [place] 40 mg EC 00 BY MOUTH MD tablet ONCE A DAY [place] A HALF n HOUR Cancer BEFORE Center BREAKFAST OR FIRST MEAL. kaushik 2019-06 Yes [id number] Apply to [facility] ne 2-29 area(s) as ity of acetonide 00:00: needed for [place] 0.1 % cream 00 Dermatitis Me dical /Rash or Branch Itching. kaushik 2019-06 Yes [id number] Apply to [facility] ne 2-29 area(s) as ity of acetonide 00:00: needed for [place] 0.1 % cream 00 Dermatitis Me dical /Rash or Branch Itching. kaushik 2019-06 Yes [id number] Apply to [facility] ne 2-29 area(s) as ity of acetonide 00:00: needed for [place] 0.1 % cream 00 Dermatitis Me dical /Rash or Branch Itching. kaushik 2019-06 Yes [id number] Apply to [facility] ne 2-29 area(s) as ity of acetonide 00:00: needed for [place] 0.1 % cream 00 Dermatitis Me dical /Rash or Branch Itching. kaushik 2019-06 Yes [id number] Apply to [facility] ne 2-29 area(s) as ity of acetonide 00:00: needed for [place] 0.1 % cream 00 Dermatitis Me dical /Rash or Branch Itching. duongcinchristian 2019-06 Yes [id number] Apply to [facility] ne 2-29 area(s) as ity of acetonide 00:00: needed for [place] 0.1 % cream 00 Dermatitis Me dical /Rash or Branch Itching. duongcinchristian 2019-06 Yes [id number] Apply to [facility] ne 2-29 area(s) as ity of acetonide 00:00: needed for [place] 0.1 % cream 00 Dermatitis Me dical /Rash or Branch Itching. davidamcinchristian 2019-06 Yes [id number] Apply to [facility] ne 2-29 area(s) as ity of acetonide 00:00: needed for [place] 0.1 % cream 00 Dermatitis Me dical /Rash or Branch Itching. kaushik 2019-06 Yes [id number] Apply to [facility] ne 2-29 area(s) as ity of acetonide 00:00: needed for [place] 0.1 % cream 00 Dermatitis Me dical /Rash or Branch Itching. triamcinolo 2020- Yes [id number] Apply to [facility] 2-29 area(s) as ity of acetonide 00:00: needed for [place] 0.1 % cream 00 Dermatitis Me dical /Rash or Branch Itching. triamcinolo 2020- Yes APPLY TO [facility] 2-29 AFFECTED Health (Kenalog) 00:00: AREA 0.1 % cream 00 NEEDED FOR DERMATITIS , RASH, OR ITCHING. triamcinolo 2020- Yes APPLY TO [facility] 2-29 AFFECTED Health (Kenalog) 00:00: AREA 0.1 % cream 00 NEEDED FOR DERMATITIS , RASH, OR ITCHING. triamcinolo 2020-1 Yes APPLY TO [facility] 2-29 AFFECTED Health (Kenalog) 00:00: AREA 0.1 % cream 00 NEEDED FOR DERMATITIS , RASH, OR ITCHING. triamcinolo 2020- Yes APPLY TO [facility] 2-29 AFFECTED Health (Kenalog) 00:00: AREA 0.1 % cream 00 NEEDED FOR DERMATITIS , RASH, OR ITCHING. triamcinolo 2020-1 Yes APPLY TO [facility] 2-29 AFFECTED Health (Kenalog) 00:00: AREA 0.1 % cream 00 NEEDED FOR DERMATITIS , RASH, OR ITCHING. triamcinolo 2020-1 Yes APPLY TO [facility] 2-29 AFFECTED Health (Kenalog) 00:00: AREA 0.1 % cream 00 NEEDED FOR DERMATITIS , RASH, OR ITCHING. triamcinolo 2020-1 Yes APPLY TO [facility] 2-29 AFFECTED Health (Kenalog) 00:00: AREA 0.1 % cream 00 NEEDED FOR DERMATITIS , RASH, OR ITCHING. triamcinolo 2020-1 Yes APPLY TO [facility] 2-29 AFFECTED Health (Kenalog) 00:00: AREA 0.1 % cream 00 NEEDED FOR DERMATITIS , RASH, OR ITCHING. triamcinolo 2020-1 Yes APPLY TO [facility] 2-29 AFFECTED Health (Kenalog) 00:00: AREA 0.1 % cream 00 NEEDED FOR DERMATITIS , RASH, OR ITCHING. triamcinolo 2020-3- No [id number] Apply to [place] [id number] 06-19 area(s) as ity of acetonide 00:00: 00:00 needed for [place] 0.1 % cream 00 :00 Dermatitis Me dical /Rash or Branch Itching. triamcinolo 2019-06- No [id number] Apply to [facility] 06-19 area(s) as ity of acetonide 00:00: 00:00 needed for [place] 0.1 % cream 00 :00 Dermatitis Me dical /Rash or Branch Itching. tricinolo 2019-06- No [id number] Apply to [facility] 06-19 area(s) as ity of acetonide 00:00: 00:00 needed for [place] 0.1 % cream 00 :00 Dermatitis Me dical /Rash or Branch Itching. chloroquine 2019-06 Yes 250mg Take 250 U nivers 250 mg 0-27 mg by ity of tablet 10:48: mouth. [address] chloroquine 2019-06 Yes 250mg Take 250 U nivers 250 mg 0-27 mg by ity of tablet 10:48: mouth. [address] chloroquine 2020- Yes 250mg Take 250 U nivers 250 mg 0-27 mg by ity of tablet 10:48: mouth. [address] chloroquine 2020- Yes 250mg Take 250 U nivers 250 mg 0-27 mg by ity of tablet 10:48: mouth. [address] chloroquine 2020- Yes 250mg Take 250 U nivers 250 mg 0-27 mg by ity of tablet 10:48: mouth. [address] chloroquine 2020- Yes 250mg Take 250 U nivers 250 mg 0-27 mg by ity of tablet 10:48: mouth. [address] chloroquine 2020- Yes 250mg Take 250 U nivers 250 mg 0-27 mg by ity of tablet 10:48: mouth. [address] chloroquine 2020- Yes 250mg Take 250 U nivers 250 mg 0-27 mg by ity of tablet 10:48: mouth. [address] chloroquine 2020- Yes 250mg Take 250 U nivers 250 mg 0-27 mg by ity of tablet 10:48: mouth. [address] chloroquine 2020- Yes 250mg Take 250 U nivers 250 mg 0-27 mg by ity of tablet 10:48: mouth. [address] chloroquine 2020-1 Yes 250mg Take 250 U nivers 250 mg 0-27 mg by ity of tablet 10:48: mouth. [address] chloroquine 2020- Yes 250mg Take 250 U nivers 250 mg 0-27 mg by ity of tablet 10:48: mouth. [address] chloroquine 2020- Yes 250mg Take 250 U nivers 250 mg 0-27 mg by ity of tablet 10:48: mouth. [address] chloroquine 2020- Yes 250mg Take 250 U nivers 250 mg 0-27 mg by ity of tablet 10:48: mouth. [address] chloroquine 2020- Yes 250mg Take 250 U nivers 250 mg 0-27 mg by ity of tablet 10:48: mouth. [address] chloroquine 2020- Yes 250mg Take 250 U nivers 250 mg 0-27 mg by ity of tablet 10:48: mouth. [address] chloroquine 2020- Yes 250mg Take 250 U nivers 250 mg 0-27 mg by ity of tablet 10:48: mouth. [address] chloroquine 2020- Yes 250mg Take 250 U nivers 250 mg 0-27 mg by ity of tablet 10:48: mouth. [address] chloroquine 2020- Yes 250mg Take 250 U nivers 250 mg 0-27 mg by ity of tablet 10:48: mouth. [address] chloroquine 2020- Yes 250mg Take 250 U nivers 250 mg 0-27 mg by ity of tablet 10:48: mouth. [address] chloroquine 2020- Yes 250mg Take 250 U nivers 250 mg 0-27 mg by ity of tablet 10:48: mouth. [address] chloroquine 2020-1 Yes 250mg Take 250 U nivers 250 mg 0-27 mg by ity of tablet 10:48: mouth. [address] chloroquine 2020-1 Yes 250mg Take 250 U nivers 250 mg 0-27 mg by ity of tablet 10:48: mouth. [address] chloroquine 2020-1 Yes 250mg Take 250 U nivers 250 mg 0-27 mg by ity of tablet 10:48: mouth. [address] chloroquine 2020-1 Yes 250mg Take 250 U nivers 250 mg 0-27 mg by ity of tablet 10:48: mouth. [address] chloroquine 2020-1 Yes 250mg Take 250 U nivers 250 mg 0-27 mg by ity of tablet 10:48: mouth. [address] chloroquine 2020- Yes 250mg Take 250 U nivers 250 mg 0-27 mg by ity of tablet 10:48: mouth. [address] chloroquine 2019- Yes 250mg Take 250 U nivers 250 mg 0-27 mg by ity of tablet 10:48: mouth. [address] chloroquine 2019- Yes 250mg Take 250 U nivers 250 mg 0-27 mg by ity of tablet 10:48: mouth. [address] chloroquine 2019- Yes 250mg Take 250 U nivers 250 mg 0-27 mg by ity of tablet 10:48: mouth. [address] chloroquine 2019- Yes 250mg Take 250 U nivers 250 mg 0-27 mg by ity of tablet 10:48: mouth. [address] cycloSPORIN 2019-06 Yes Univer s E 100 mg 0-14 ity of capsule 00:00: [address] Branch cycloSPORIN 2020- Yes Univer s E 100 mg 0-14 ity of capsule 00:00: [address] Branch cycloSPORIN 2020- Yes Univer s E 100 mg 0-14 ity of capsule 00:00: [place] [address] Medical Branch cycloSPORIN 2020- Yes Univer s E 100 mg 0-14 ity of capsule 00:00: [place] [address] Medical Branch cycloSPORIN 2020- Yes Univer s E 100 mg 0-14 ity of capsule 00:00: [address] Branch cycloSPORIN 2020- Yes Univer s E 100 mg 0-14 ity of capsule 00:00: [address] Branch cycloSPORIN 2020- Yes Univer s E 100 mg 0-14 ity of capsule 00:00: [address] Branch cycloSPORIN 2020- Yes Univer s E 100 mg 0-14 ity of capsule 00:00: [place] [address] Medical Branch cycloSPORIN 2020- Yes Univer s E 100 mg 0-14 ity of capsule 00:00: [address] Branch cycloSPORIN 2020- Yes Univer s E 100 mg 0-14 ity of capsule 00:00: [address] Branch cycloSPORIN 2020-2022- No Unive rs E 100 mg 0-14 01-11 ity of capsule 00:00: 00:00 [place] 00 :00 Medical Branch cycloSPORIN 2020-2022- No Unive rs E 100 mg 0-14 06-19 ity of capsule 00:00: 00:00 00 Medical Branch cycloSPORIN 2019-06- No Unive rs E 100 mg 0-14 06-19 ity of capsule 00:00: 00:00 00 : Medical Branch methotrexat 2019-06 Yes 5{tbl} Take 5 Un christel e 2.5 mg 0-13 tablets by ity o f tablet 00:00: mouth once [place] 00 a week. MD Maryanne marlow [facility] foLIC acid 2019-06 Yes 1mg Take 1 mg Un christel 1 mg tablet 0-13 by mouth ity of 00:00: daily. [facility] methotrexat 2019-06 Yes TAKE FIVE U nivers e 2.5 mg 0-13 (5) ity of tablet 00:00: TABLETS BY [place] [address] MOUTH ONCE Medical A WEEK. [place] foLIC acid 2019-06 Yes 1mg Take 1 mg Un christel 1 mg tablet 0-13 by mouth ity of 00:00: daily. [facility] methotrexat 2019-06 Yes TAKE FIVE U nivers e 2.5 mg 0-13 (5) ity of tablet 00:00: TABLETS BY [place] MOUTH ONCE Medical A WEEK. [place] foLIC acid 2019-06 Yes 1mg Take 1 mg Un christel 1 mg tablet 0-13 by mouth ity of 00:00: daily. [place] [facility] methotrexat 2019-06 Yes TAKE FIVE U nivers e 2.5 mg 0-13 (5) ity of tablet 00:00: TABLETS BY [place] [address] MOUTH ONCE Medical A WEEK. [place] foLIC acid 2019-06 Yes 1mg Take 1 mg Un christel 1 mg tablet 0-13 by mouth ity of 00:00: daily. [place] [facility] methotrexat 2019-06 Yes TAKE FIVE U nivers e 2.5 mg 0-13 (5) ity of tablet 00:00: TABLETS BY [place] MOUTH ONCE Medical A WEEK. [place] foLIC acid 2019-06 Yes 1mg Take 1 mg Un christel 1 mg tablet 0-13 by mouth ity of 00:00: daily. [place] [facility] methotrexat 2019-06 Yes TAKE FIVE U nivers e 2.5 mg 0-13 (5) ity of tablet 00:00: TABLETS BY [place] 00 MOUTH ONCE Medical A WEEK. Branch foLIC acid 2020-1 Yes 1mg Take 1 mg Un christel 1 mg tablet 0-13 by mouth ity of 00:00: daily. [place] [facility] Branch methotrexat 2020- Yes TAKE FIVE U nivers e 2.5 mg 0-13 (5) ity of tablet 00:00: TABLETS BY [place] [address] MOUTH ONCE Medical A WEEK. Branch foLIC acid 2020-1 Yes 1mg Take 1 mg Un christel 1 mg tablet 0-13 by mouth ity of 00:00: daily. [place] [facility] methotrexat 2020- Yes TAKE FIVE U nivers e 2.5 mg 0-13 (5) ity of tablet 00:00: TABLETS BY [place] [address] MOUTH ONCE Medical A WEEK. Branch foLIC acid 2020- Yes 1mg Take 1 mg Un christel 1 mg tablet 0-13 by mouth ity of 00:00: daily. [place] [facility] methotrexat 2019- Yes TAKE FIVE U nivers e 2.5 mg 0-13 (5) ity of tablet 00:00: TABLETS BY [place] [address] MOUTH ONCE Medical A WEEK. Branch foLIC acid 2020-1 Yes 1mg Take 1 mg Un [facility] 1 mg tablet 0-13 by mouth ity of 00:00: daily. [place] [facility] methotrexat 2019- Yes TAKE FIVE U nivers e 2.5 mg 0-13 (5) ity of tablet 00:00: TABLETS BY [place] [address] MOUTH ONCE Medical A WEEK. Branch foLIC acid 2019-1 Yes 1mg Take 1 mg Un christel 1 mg tablet 0-13 by mouth ity of 00:00: daily. [place] [facility] methotrexat 2020- Yes TAKE FIVE U nivers e 2.5 mg 0-13 (5) ity of tablet 00:00: TABLETS BY [place] [address] MOUTH ONCE Medical A WEEK. Branch foLIC acid 2020-1 Yes 1mg Take 1 mg Un christel 1 mg tablet 0-13 by mouth ity of 00:00: daily. [address] foLIC acid 2020-1 Yes 1mg Take 1 mg Un christ[facility] 1 mg tablet 0-13 by mouth ity of 00:00: daily. [address] foLIC acid 2020-1 Yes 1mg Take 1 mg Un [facility] 1 mg tablet 0-13 by mouth ity of 00:00: daily. [address] foLIC acid 2020-1 Yes 1mg Take 1 mg Un [facility] 1 mg tablet 0-13 by mouth ity of 00:00: daily. [place] [facility] foLIC acid 2020-1 Yes 1mg Take 1 mg Un christel 1 mg tablet 0-13 by mouth ity of 00:00: daily. [place] [facility] foLIC acid 2020-1 Yes 1mg Take 1 mg Un [facility] 1 mg tablet 0-13 by mouth ity of 00:00: daily. [place] [facility] Branch foLIC acid 2020-1 Yes 1mg Take 1 mg Un [facility] 1 mg tablet 0-13 by mouth ity of 00:00: daily. [place] [facility] Branch foLIC acid 2020-1 Yes 1mg Take 1 mg Un christel 1 mg tablet 0-13 by mouth ity of 00:00: daily. [place] [facility] Branch foLIC acid 2020-1 Yes 1mg Take 1 mg Un christel 1 mg tablet 0-13 by mouth ity of 00:00: daily. [place] [facility] Branch foLIC acid 2020-1 Yes 1mg Take 1 mg Un christel 1 mg tablet 0-13 by mouth ity of 00:00: daily. [place] [facility] foLIC acid 2020-1 Yes 1mg Take 1 mg Un christel 1 mg tablet 0-13 by mouth ity of 00:00: daily. [place] [facility] foLIC acid 2020-1 Yes 1mg Take 1 mg Un christel 1 mg tablet 0-13 by mouth ity of 00:00: daily. [place] [facility] foLIC acid 2020-1 Yes 1mg Take 1 mg Un christel 1 mg tablet 0-13 by mouth ity of 00:00: daily. [place] [facility] foLIC acid 2020-1 Yes 1mg Take 1 mg Un christel 1 mg tablet 0-13 by mouth ity of 00:00: daily. [place] [facility] foLIC acid 2020-1 Yes 1mg Take 1 mg Un christel 1 mg tablet 0-13 by mouth ity of 00:00: daily. [place] [facility] foLIC acid 2020-1 Yes 1mg Take 1 mg Un christel 1 mg tablet 0-13 by mouth ity of 00:00: daily. [place] [facility] foLIC acid 2020-1 Yes 1mg Take 1 mg Un christel 1 mg tablet 0-13 by mouth ity of 00:00: daily. [place] [facility] foLIC acid 2020-1 Yes 1mg Take 1 mg Un christel 1 mg tablet 0-13 by mouth ity of 00:00: daily. [place] [facility] foLIC acid 2019-06 Yes 1mg Take 1 mg Un christel 1 mg tablet 0-13 by mouth ity of 00:00: daily. [place] [facility] foLIC acid 2019-06 Yes 1mg Take 1 mg Un christel 1 mg tablet 0-13 by mouth ity of 00:00: daily. [place] [facility] foLIC acid 2019-06 Yes 1mg Take 1 mg Un christel 1 mg tablet 0-13 by mouth ity of 00:00: daily. [place] [facility] methotrexat 2019-06 Yes 5{tbl} Take 5 Un christel e 2.5 mg 0-13 tablets by ity o f tablet 00:00: mouth once [place] 00 a week. MD Maryanne marlow [facility] methotrexat 2019-06- No TAKE FIVE Univers e 2.5 mg 0-13 06-19 (5) ity of tablet 00:00: 00:[place] MOUTH ONCE Medical A WEEK. [place] methotrexat 2019-06- No TAKE FIVE Univers e 2.5 mg 0-13 06-19 (5) ity of tablet 00:00: 00:[place] MOUTH ONCE Medical A WEEK. [place] methotrexat 2019-06- No TAKE FIVE Univers e 2.5 mg 0-13 06-19 (5) ity of tablet 00:00: 00:[place] MOUTH ONCE Medical A WEEK. [place] folic acid 2019-06 Yes 1mg 1 mg. UT (Folvite) 1 0-12 Health MG tablet 00:00: 00 methotrexat 2019-06 Yes 2.5mg 2.5 mg UT e 2.5 MG 0-12 Health tablet 00:00: 00 folic acid 2019-06- No 1mg 1 mg. UT (Folvite) 1 0-12 -12 Health MG tablet 00:00: 00:00 00 :00 folic acid 2019-06- No 1mg 1 mg. UT (Folvite) 1 0-05 09- Health MG tablet 00:00: 00:00 00 :00 folic acid 2019-06- No 1mg 1 mg. UT (Folvite) 1 0-12 01-12 Health MG tablet 00:00: 00:00 00 :00 methotrexat 2019-2020- No 2.5mg 2.5 mg UT e 2.5 MG 012 01-16 Health tablet 00:00: 00:00 00 :00 cyanocobala 2020-0 Yes INJECT ONE UT min 7-16 (1) ML(S) Health (Vitamin 00:00: INTO THE B-12) 1000 00 SHOULDER, MCG/ML THIGH OR injection BUTTOCKS ONCE A WEEK FOR 28 DAYS, THEN INJECT ONE (1) ML(S) ONCE A MONTH FOR ONE MONTH. cyanocobala 2020-0 Yes INJECT ONE UT min 7-16 (1) ML(S) Health (Vitamin 00:00: INTO THE B-12) 1000 00 SHOULDER, MCG/ML THIGH OR injection BUTTOCKS ONCE A WEEK FOR 28 DAYS, THEN INJECT ONE (1) ML(S) ONCE A MONTH FOR ONE MONTH. cyanocobala 2020-0 Yes INJECT ONE UT min 7-16 (1) ML(S) Health (Vitamin 00:00: INTO THE B12) 1000 00 SHOULDER, MCG/ML THIGH OR injection BUTTOCKS ONCE A WEEK FOR 28 DAYS, THEN INJECT ONE (1) ML(S) ONCE A MONTH FOR ONE MONTH. cyanocobala 2020-0 Yes INJECT ONE UT min 7-16 (1) ML(S) Health (Vitamin 00:00: INTO THE B-12) 1000 00 SHOULDER, MCG/ML THIGH OR injection BUTTOCKS ONCE A WEEK FOR 28 DAYS, THEN INJECT ONE (1) ML(S) ONCE A MONTH FOR ONE MONTH. cyanocobala 2020-0 Yes INJECT ONE UT min 7-16 (1) ML(S) Health (Vitamin 00:00: INTO THE B-12) 1000 00 SHOULDER, MCG/ML THIGH OR injection BUTTOCKS ONCE A WEEK FOR 28 DAYS, THEN INJECT ONE (1) ML(S) ONCE A MONTH FOR ONE MONTH. cyanocobala 2020-0 Yes INJECT ONE UT min 7-16 (1) ML(S) Health (Vitamin 00:00: INTO THE B-12) 1000 00 SHOULDER, MCG/ML THIGH OR injection BUTTOCKS ONCE A WEEK FOR 28 DAYS, THEN INJECT ONE (1) ML(S) ONCE A MONTH FOR ONE MONTH. cyanocobala 2020-0 Yes INJECT ONE UT min 7-16 (1) ML(S) Health (Vitamin 00:00: INTO THE B-12) 1000 00 SHOULDER, MCG/ML THIGH OR injection BUTTOCKS ONCE A WEEK FOR 28 DAYS, THEN INJECT ONE (1) ML(S) ONCE A MONTH FOR ONE MONTH. cyanocobala 2020-0 Yes INJECT ONE UT min 7-16 (1) ML(S) Health (Vitamin 00:00: INTO THE B-12) 1000 00 SHOULDER, MCG/ML THIGH OR injection BUTTOCKS ONCE A WEEK FOR 28 DAYS, THEN INJECT ONE (1) ML(S) ONCE A MONTH FOR ONE MONTH. cyanocobala 2020-0 Yes INJECT ONE UT min 7-16 (1) ML(S) Health (Vitamin 00:00: INTO THE B-12) 1000 00 SHOULDER, MCG/ML THIGH OR injection BUTTOCKS ONCE A WEEK FOR 28 DAYS, THEN INJECT ONE (1) ML(S) ONCE A MONTH FOR ONE MONTH. chloroquine 2019-0 Yes 250mg 250 mg. UT (Aralen) 12-07 Health 250 MG 00:00: tablet 00 chloroquine 2020- No 250mg 250 mg. U T (Aralen) 12-07 Health 250 MG 00:00: 00:00 tablet 00 :00 chloroquine 2019-0 2020- No 250mg 250 mg. U T (Aralen) 12-07 Health 250 MG 00:00: 00:00 tablet 00 :00 cycloSPORIN 2019-0 Yes 100mg 100 mg. UT E modified 12-06 Health (NEOral) 00:00: 100 MG 00 capsule cycloSPORIN 2020- No 100mg 100 mg. U T E modified 12-06 Health (NEOral) 00:00: 00:00 100 MG 00 :00 capsule EPINEPHrine 2020-0 Yes INJECT 0.3 UT (Epipen) 6-23 [facility] Healt h 0.3 00:00: BY MG/0.3ML 00 INTRAMUSCU injection LAR ROUTE syringe ([facility] , OFF CENTER) NEEDED FOR ANAPHYLAXI S EPINEPHrine 2020-0 Yes INJECT 0.3 UT (Epipen) 6-23 [facility] Healt h 0.3 00:00: BY MG/0.3ML 00 INTRAMUSCU injection LAR ROUTE syringe ([facility] , OFF CENTER) NEEDED FOR ANAPHYLAXI S EPINEPHrine 2020-0 Yes INJECT 0.3 UT (Epipen) 6-23 [facility]alt h 0.3 00:00: BY MG/0.3ML 00 INTRAMUSCU injection LAR ROUTE syringe ([facility] , OFF CENTER) NEEDED FOR ANAPHYLAXI S EPINEPHrine 2020-0 Yes INJECT 0.3 UT (Epipen) 6-23 [facility]alt h 0.3 00:00: BY MG/0.3ML 00 INTRAMUSCU injection LAR ROUTE syringe ([facility] , OFF CENTER) NEEDED FOR ANAPHYLAXI S EPINEPHrine 2020-0 Yes INJECT 0.3 UT (Epipen) 6-23 [facility] 0.3 00:00: BY MG/0.3ML 00 INTRAMUSCU injection LAR ROUTE syringe ([facility] , OFF CENTER) NEEDED FOR ANAPHYLAXI S EPINEPHrine 2020-0 Yes INJECT 0.3 UT (Epipen) 6-23 [facility] Healt h 0.3 00:00: BY MG/0.3ML 00 INTRAMUSCU injection LAR ROUTE syringe ([facility] , OFF CENTER) NEEDED FOR ANAPHYLAXI S EPINEPHrine 2020-0 Yes INJECT 0.3 UT (Epipen) 6-23 [facility] 0.3 00:00: BY MG/0.3ML 00 INTRAMUSCU injection LAR ROUTE syringe ([facility] , OFF CENTER) NEEDED FOR ANAPHYLAXI S EPINEPHrine 2020-0 Yes INJECT 0.3 UT (Epipen) 6-23 [place] 0.3 00:00: BY MG/0.3ML 00 INTRAMUSCU injection LAR ROUTE syringe ([facility] , OFF CENTER) NEEDED FOR ANAPHYLAXI S EPINEPHrine 2020-0 Yes INJECT 0.3 UT (Epipen) 6-23 [facility] 0.3 00:00: BY MG/0.3ML 00 INTRAMUSCU injection LAR ROUTE syringe ([facility] , OFF CENTER) NEEDED FOR ANAPHYLAXI S fluticasone 2020-0 Yes SPRAY ONE U T (Flonase) 11-28 (1) Health 50 MCG/ACT 00:00: SPRAY(S) nasal spray 00 INTO EACH NOSTRIL TWICE A DAY. fluticasone 2020-0 Yes SPRAY ONE U T (Flonase) 22 (1) Health 50 MCG/ACT 00:00: SPRAY(S) nasal spray 00 INTO EACH NOSTRIL TWICE A DAY. fluticasone 2020-0 Yes SPRAY ONE U T (Flonase) 11-28 (1) Health 50 MCG/ACT 00:00: SPRAY(S) nasal spray 00 INTO EACH NOSTRIL TWICE A DAY. fluticasone 2020-0 Yes SPRAY ONE U T (Flonase) 11-28 (1) Health 50 MCG/ACT 00:00: SPRAY(S) nasal spray 00 INTO EACH NOSTRIL TWICE A DAY. fluticasone 2020-0 Yes SPRAY ONE U T (Flonase) 11-28 () Health 50 MCG/ACT 00:00: SPRAY(S) nasal spray 00 INTO EACH NOSTRIL TWICE A DAY. fluticasone 2020-0 Yes SPRAY ONE U T (Flonase) 11-28 () Health 50 MCG/ACT 00:00: SPRAY(S) nasal spray 00 INTO EACH NOSTRIL TWICE A DAY. fluticasone 2020-0 Yes SPRAY ONE U T (Flonase) 11-28 () Health 50 MCG/ACT 00:00: SPRAY(S) nasal spray 00 INTO EACH NOSTRIL TWICE A DAY. fluticasone 2020-0 Yes SPRAY ONE U T (Flonase) 11-28 () Health 50 MCG/ACT 00:00: SPRAY(S) nasal spray 00 INTO EACH NOSTRIL TWICE A DAY. fluticasone 2020-0 Yes SPRAY ONE U T (Flonase) 11-28 () Health 50 MCG/ACT 00:00: SPRAY(S) nasal spray 00 INTO EACH NOSTRIL TWICE A DAY. montelukast 2020-0 Yes 10mg Take 10 mg Univers (SINGULAIR) 6-12 by mouth ity of 10 mg 00:00: daily. [place] tablet 00 [facility] montelukast 2020-0 Yes 10mg Take 10 mg Univers (SINGULAIR) 6-12 by mouth ity of 10 mg 00:00: daily. [place] tablet 00 [facility] montelukast 2020-0 Yes 10mg 10 mg. UT (Singulair) 6-12 Health 10 MG 00:00: tablet 00 montelukast 2020-0 Yes 10mg 10 mg. UT (Singulair) 6-12 Health 10 MG 00:00: tablet 00 montelukast 2020-0 Yes 10mg 10 mg. UT (Singulair) 6-12 Health 10 MG 00:00: tablet 00 montelukast 2020-0 Yes 10mg 10 mg. UT (Singulair) 6-12 Health 10 MG 00:00: tablet 00 montelukast 2020-0 Yes 10mg 10 mg. UT (Singulair) 6-12 Health 10 MG 00:00: tablet 00 montelukast 2020-0 Yes 10mg 10 mg. UT (Singulair) 6-12 Health 10 MG 00:00: tablet 00 montelukast 2020-0 Yes 10mg 10 mg. UT (Singulair) 6-12 Health 10 MG 00:00: tablet 00 montelukast 2020-0 Yes 10mg 10 mg. UT (Singulair) 6-12 Health 10 MG 00:00: tablet 00 montelukast 2020-0 Yes 10mg 10 mg. UT (Singulair) 6-12 Health 10 MG 00:00: tablet 00 cetirizine 2020-0 Yes 10mg Take 10 mg U nivers (ZyrTEC) 10 6-09 by mouth ity [place] mg [place] 00:[place] [facility] cetirizine 2020-0 Yes 10mg Take 10 mg U nivers (ZyrTEC) 10 6-09 by mouth ity of mg tablet 00:00: [place] [facility] cetirizine 2020-0 Yes 10mg Take 10 mg U T (ZyrTEC) 10 6-09 by mouth. Hea lth MG tablet 00:00: 00 cetirizine 2020-0 Yes 10mg Take 10 mg U T (ZyrTEC) 10 6-09 by mouth. Hea lth MG tablet 00:00: 00 cetirizine 2020-0 Yes 10mg Take 10 mg U T (ZyrTEC) 10 6-09 by mouth. Hea lth MG tablet 00:00: 00 cetirizine 2020-0 Yes 10mg Take 10 mg U T (ZyrTEC) 10 6-09 by mouth. Hea lth MG tablet 00:00: 00 cetirizine 2020-0 Yes 10mg Take 10 mg U T (ZyrTEC) 10 6-09 by mouth. Hea lth MG tablet 00:00: 00 cetirizine 2020-0 Yes 10mg Take 10 mg U T (ZyrTEC) 10 6-09 by mouth. Hea lth MG tablet 00:00: 00 cetirizine 2020-0 Yes 10mg Take 10 mg U T (ZyrTEC) 10 6-09 by mouth. Hea lth MG tablet 00:00: 00 cetirizine 2020-0 Yes 10mg Take 10 mg U T (ZyrTEC) 10 6-09 by mouth. Hea lth MG tablet 00:00: 00 cetirizine 2020-0 Yes 10mg Take 10 mg U T (ZyrTEC) 10 6-09 by mouth. Hea lth MG tablet 00:00: 00 Chloroquine Chloroquine No Chloroquin Phosphate Phosphate e 250 MG 250 MG Phosphate 250 MG metFORMIN metFORMIN No metFORMIN HCl 500 MG HCl 500 MG HCl 500 MG Vitamin D3 Vitamin D3 No Vitamin D3 Complete - Complete - Complete - Methotrexat Methotrexat No Methotrexa e 2.5 MG e 2.5 MG te 2.5 MG Montelukast Montelukast No Montelukas Sodium 10 Sodium 10 t Sodium MG MG 10 MG Nucala 100 Nucala 100 No Nucala 100 MG/ML MG/ML MG/ML Bhumika Bhumika No QD Bhumika Allergy 180 Allergy 180 Allergy MG MG 180 MG Folic Acid Folic Acid No Folic Acid 1 MG 1 MG 1 MG Estarylla Estarylla No Estarylla 0.25-35 0.25-35 0.25-35 MG-MCG MG-MCG MG-MCG Methotrexat Methotrexat No Methotrexa e 2.5 MG e 2.5 MG te 2.5 MG Estarylla Estarylla No Estarylla 0.25-35 0.25-35 0.25-35 MG-MCG MG-MCG MG-MCG Nucala 100 Nucala 100 No Nucala 100 MG/ML MG/ML MG/ML Bhumika Bhumika No QD Bhumika Allergy 180 Allergy 180 Allergy MG MG 180 MG Montelukast Montelukast No Montelukas Sodium 10 Sodium 10 t Sodium MG MG 10 MG Folic Acid Folic Acid No Folic Acid 1 MG 1 MG 1 MG Vitamin D3 Vitamin D3 No Vitamin D3 Complete - Complete - Complete - Chloroquine Chloroquine No Chloroquin Phosphate Phosphate e 250 MG 250 MG Phosphate 250 MG metFORMIN metFORMIN No metFORMIN HCl 500 MG HCl 500 MG HCl 500 MG Methotrexat Methotrexat No Methotrexa e 2.5 MG e 2.5 MG te 2.5 MG Estarylla Estarylla No Estarylla 0.25-35 0.25-35 0.25-35 MG-MCG MG-MCG MG-MCG Nucala 100 Nucala 100 No Nucala 100 MG/ML MG/ML MG/ML Bhumika Bhumika No QD Bhumika Allergy 180 Allergy 180 Allergy MG MG 180 MG Montelukast Montelukast No Montelukas Sodium 10 Sodium 10 t Sodium MG MG 10 MG Folic Acid Folic Acid No Folic Acid 1 MG 1 MG 1 MG Vitamin D3 Vitamin D3 No Vitamin D3 Complete - Complete - Complete - Chloroquine Chloroquine No Chloroquin Phosphate Phosphate e 250 MG 250 MG Phosphate 250 MG metFORMIN metFORMIN No metFORMIN HCl 500 MG HCl 500 MG HCl 500 MG Vital Signs Vital Name Observation Time Observation Value Comments Source Systolic blood 2023-02-03 18:13:00 118 mm[Hg] [facility] Diastolic blood 2023-02-03 18:13:00 72 [facility]Hg[facility] 2023-02-03 18:13:00 85 /min [facility] Respiratory rate 2023-02-03 18:13:00 18 /min [facility] Body height 2023-02-03 18:13:00 165.1 cm [facility] Body weight 2023-02-03 18:13:00 134.265 kg [facility] BMI 2023-02-03 18:13:00 49.26 kg/m2 [facility] Oxygen saturation in 2023-02-03 18:13:00 99 /min [facility] Arterial blood by [facility] Pulse oximetry Branch Systolic blood 2023-02-03 18:13:00 118 mm[Hg] [facility] Diastolic blood 2023-02-03 18:13:00 72 mm[Hg] [facility] Heart rate 2023-02-03 18:13:00 85 /min [facility] Respiratory rate 2023-02-03 18:13:00 18 /min [facility] Body height 2023-02-03 18:13:00 165.1 cm [facility] Body weight 2023-02-03 18:13:00 134.265 kg [facility] BMI 2023-02-03 18:13:00 49.26 kg/m2 [facility] Oxygen saturation in 2023-02-03 18:13:00 99 /min University of Arterial blood by [facility] atiya Pulse oximetry Branch Systolic blood 2022-12-18 15:26:00 116 mm[Hg] Univer sity of [facility] [place] [facility] Diastolic blood 2022-12-18 15:26:00 81 mm[Hg] Unive rsity of pressure [place] [facility] Heart rate 2022-12-18 15:26:00 72 /min [facility] [place] [facility] Respiratory rate 2022-12-18 15:26:00 18 /min [facility] [place] [facility] Body height 2022-12-18 15:26:00 165.1 cm [facility] [place] [facility] Body weight 2022-12-18 15:26:00 134.718 kg [facility] BMI 2022-12-18 15:26:00 49.42 kg/m2 [facility] [place] [facility] Oxygen saturation in 2022-12-18 15:26:00 100 /min University of Arterial blood by [facility] Pulse oximetry Branch Systolic blood 2022-06-19 16:34:00 143 mm[Hg] Univer [facility]ity [facility] [place] [facility] Diastolic blood 2022-06-19 16:34:00 86 mm[Hg] Unive rsity of pressure [place] [facility] Heart rate 2022-06-19 16:34:00 74 /min [facility] [place] [facility] Respiratory rate 2022-06-19 16:34:00 18 /min [facility] [place] [facility] Body height 2022-06-19 16:34:00 165.1 cm [facility] Body weight 2022-06-19 16:34:00 133.131 kg [facility] BMI 2022-06-19 16:34:00 48.84 kg/m2 [facility] [place] [facility] Oxygen saturation in 2022-06-19 16:34:00 97 /min University of Arterial blood by [facility] atiya Pulse oximetry Branch height 2021-10-02 10:40:00 65 [in_i] [facility] weight 2021-10-02 10:40:00 284 [lb_av] [facility] temperature 2021-10-02 10:40:00 98.6 [degF] [facility] bmi 2021-10-02 10:40:00 47.25 kg/m2 [facility] oximetry 2021-10-02 10:40:00 98 % [facility] respiratory rate 2021-10-02 10:40:00 16 /min [facility] blood pressure 2021-10-02 10:40:00 124 mm[Hg] [facility] systolic [facility] blood pressure 2021-10-02 10:40:00 66 mm[Hg] [facility] - diastolic [facility] WEIGHT 2020-04-17 10:22:04 133 kg HEIGHT 2019-12-08 00:00:00 165.5 cm WEIGHT 2019-12-08 00:00:00 126.7 kg Procedures Procedure Date / Time Performing Clinician Source Performed CBC WITH DIFF 2023-02-03 19:[facility] CBC WITH DIFF 2023-02-03 19:27:00 Amelie Kaur [facility] PATIENT FINANCIAL 2022-12-18 15:17:18 Doctor Unassigned, No [facility] POLICY Name [facility] ASSIGNMENT OF BENEFITS 2022-06-19 16:18:43 Doctor Unassigned, No [facility] COMPREHENSIVE METABOLIC 2021-04-25 22:11:00 Alexa Anders [place] [facility] PANEL CBC AND DIFFERENTIAL 2021-04-25 22:11:00 Alexa Anders [facility] COMPREHENSIVE METABOLIC 2021-01-18 14:48:00 Merlin Alexandra [place] [facility] PANEL CBC AND DIFFERENTIAL 2021-01-18 14:48:00 Merlin Alexandra [place] [facility] Plan of Care Planned Activity Planned Date Details Comments Source Future Scheduled 2023-03-17 COVID[facility]19 [facility] 11:10:42 (#1) [code = COVID-19 [facility] (#1)] Center Future Scheduled 2022-01-18 COVID-19 Vaccination [facility] [place] Test 06:33:28 (#1) [code = COVID-19 MD [facility] Vaccination (#1)] Center Encounters Start End Encounter Admission Attending Care Care Encounter Source Date/Time Date/Time Type Type Clinicians Facility Department ID 2022-11-20 Outpatient [facility] [id number] [place] 12:12:[id number] [facility] 2022-08-19 Outpatient [facility] [id number] [place] 09:26:[id number] [facility] 2022-08-16 Outpatient [facility] [id number] [place] 12:51:[id number] [facility] 2022-08-15 Outpatient [facility] [id number] [place] 09:58:[id number] [facility] 2022-07-18 Outpatient [facility] [id number] [place] 12:26:[id number] [facility] 2022-04-16 Outpatient [facility] [id number] [place] 08:23:[id number] [facility] 2021-10-03 Outpatient Maxwell, STLMLC [facility] [id number] Common 14:14:05 [facility] 2021-10-01 Outpatient Maxwell, STLMLC [facility] [id number] Common 16:27:04 [facility] 2020-10-14 Outpatient [facility] [id number] [place] 03:18:14 [facility] 2020-01-19 Outpatient JUDSON TYSON, MDA MDA [id number] 12:33:58 DOUGLAS marlow 2020-01-13 Outpatient WALKER, MDA MDA [id number] 08:48:04 LUIS marlow 2020-01-04 Outpatient SYSTEM, MDA MDA [id number] 09:22:39 GORDON marlow 2019-12-01 Outpatient SYSTEM, MDA MDA [id number] 14:35:48 GORDON marlow 2023-06-16 2023-06-16 Outpatient [facility] [id number] [place] 11:10:00 11:10:00 [facility] 2023 2023 Outpatient IBRAHIMA, [facility] [id number] [place] 11:00:00 11:00:00 [facility] 2023-02-11 2023-02-11 Refill [facility] [id number] [facility] 00:00:00 00:00:00 Katherine MULTISPEC [id number] [id number] [id number] [facility] AND [address] [facility] 2023-02-06 2023-02-06 Patient [facility] [id number] [facility] 00:00:00 00:00:00 Secure Msg Katherine MULTISPEC [id number] [id number] [id number] [facility] AND [address] [facility] 2023-02-04 2023-02-04 Telephone [facility] [id number] Univers 00:00:00 00:00:00 Katherine MYERSPEC [id number] [id number] [id number] [facility] AND [address] [facility] 2023-02-03 2023-02-03 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 [facility] [id number] Univers 14:15:00 14:30:00 Visit Katherine LizPEC 350.1 .13.10 [id number] [id number] [facility] AND [address] [facility] 2023-02-03 2023-02-03 [facility] [id number] Univers 13:00:00 14:17:40 KATHERINE malave of [facility] 2023-02-03 2023-02-03 Office [facility] [id number] Univers 13:00:00 14:17:40 Visit Katherine MYERSPEC [id number] [id number] [id number] [facility] AND [address] [facility] 2023-01-20 2023-01-20 [id number] [place] 09:30:00 11:16:58 [facility] 2023-01-02 2023-01-02 Telephone [facility] [id number] [facility] 00:00:00 00:00:00 Katherine MULTISPEC [id number] [id number] [id number] [facility] AND [address] [facility] 2022-12-31 2022-12-31 Patient [facility] [id number] [facility] 00:00:00 00:00:00 Secure Msg Katherine MULTISPEC [id number] [id number] [id number] [facility] AND [address] [facility] 2022-12-18 2022-12-18 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 [facility] [id number] [facility] 11:45:00 12:00:00 Visit Katherine LizPEC 350.1 .13.10 [id number] [id number] [facility] AND [address] DI[facility] 2022-12-18 2022-12-18 Outpatient R [facility] [id number] Univers 10:30:00 11:36:47 KATHERINE ity of [facility] 2022-12-18 2022-12-18 Office [facility] [id number] Univers 10:30:00 11:36:47 Visit Katherine ROLAND [id number] [id number] [id number] [facility] AND [address] [facility] 2022-12-18 2022-12-18 Orders Doctor GRACIELA [id number] Univers 00:00:00 00:00:00 Only Unassigned, TIFFANY [id number] [facility] [id number] [place] [id number] [place] [address] [place] 2022-11-20 2022-11-20 Office [facility], [facility] [id number] [place] 12:00:00 14:15:25 Visit Merlin MARTINEZ [id number] H ealth STATION [id number] BUILDING [id number] 2022-10-28 2022-10-28 Patient [facility] [id number] [facility] 00:00:00 00:00:00 Secure Msg Katherine MULTISPEC [id number] ity of [facility] [id number] [facility] [place] [id number] [address] DI[facility]IC 2022-08-19 2022-08-19 Office [facility] [id number] [place] 09:45:00 11:06:56 Visit Merlin MARTINEZ [id number] H ealth STATION [id number] [facility] [id number] 2022-07-29 2022-07-29 Refill [facility] [id number] Univers 00:00:00 00:00:00 Katherine MULTISPEC [id number] [id number] [id number] [facility] AND [address] [facility] 2022-07-24 2022-07-24 Telephone [facility] 1.2.840.114 [id number] Univers 00:00:00 00:00:00 Katherine MULTISPEC 350.1.13.10 [place] [id number] [facility] AND [address] [facility] 2022-06-19 2022-06-19 Outpatient R [facility] [id number] Univers 14:00:00 14:00:00 KATHERINE malave [facility] 2022-06-19 2022-06-19 [facility] [id number] Univers 14:00:00 14:00:00 KATHERINE radhanaa [facility] 2022-06-19 2022-06-19 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 [facility] 1.2.840.114 [id number] Univers 12:00:00 12:15:00 Visit Katherine LizPEC 350.1 .13.10 [facility]y [facility] [place] [id number] [facility] AND [address] [facility] 2022-06-19 2022-06-19 Outpatient R [facility] [id number] Univers 10:30:00 11:24:04 KATHERINE garcianaa [facility] 2022-06-19 2022-06-19 Office [facility] 1.2.840.114 [id number] Univers 10:30:00 11:24:04 Visit [facility] 350.1.13.10 ity [facility] [place]2.7.2.[place] [phone] [place] 526766 [place] [facility] 2022-06-19 2022-06-19 Orders Doctor GRACIELA 1.2.840.114 [id number] Univers 00:00:00 00:00:00 Only Unassigned, TIFFANY 350.1.13.[address] [facility] 4.2.7.2.686 Arslan as [phone] [facility] 009 Branch 2022-06-14 2022-06-14 Telephone [facility] 1.2.840.114 [id number] Univers 00:00:00 00:00:00 Katherine PRIMARY 350.1.13.[address] [facility] 4.2.7.2.[place] [phone] [facility] 056 [place] 2022-06-13 2022-06-13 Patient [facility] 1.2.840.114 [id number] [facility] 00:00:00 00:00:00 Secure Msg Katherine MULTISPEC 350.1.13.10 [facility].7[facility] [place] [phone] [facility] AND [address] [facility] 2022-06-12 2022-06-12 Telephone [facility] 1.2.840.114 [id number] [facility] 00:00:00 00:00:00 Katherine MULTISPEC 350.1.13.10 ity of [facility] 4.2.7.2.686 [facility] [place] [phone] [facility] AND [address] [facility]IC 2022-05-16 2022-05-16 Outpatient [facility] [id number] [place] 09:30:00 09:30:00 [facility] 2022-05-16 2022-05-16 (TEL) [facility] [id number] Co mmon 00:00:00 00:00:00 [facility] 2022-05-10 2022-05-10 Telephone [facility] 1.2.840.114 [id number] [facility] 00:00:00 00:00:00 Katherine MULTISPEC 350.1.13.10 ity of [facility] 4.2.7.2.686 [facility] [place] [phone] [address] DIABETES CLINIC 2022-04-18 2022-04-18 Outpatient [facility]LY [facility] [id number] [place] 12:00:00 12:00:00 [facility] 2022 2022 Office ARLET Bravo 1.2.840.114 [id number] [place] 10:00:00 10:27:55 Visit Corbin MARTINEZ 350.1.13.58 H [facility] 9.2.7.2.686 [facility] [id number] 7 2022-03-08 2022-03-08 Outpatient [facility] [id number] [place] 09:40:00 09:40:00 [facility] 2022-01-18 2022-01-18 Telephone [facility] 1.2.840.114 [id number] Univers 00:00:00 00:00:00 Katherine MULTISPEC 350.1.13.10 ity of [place]2.[place].2.[place] [phone] [facility] AND [address] DI[facility]ETES [facility]INIC 2022-01-17 2022-01-17 Office [facility] 4 1.2.840.114 [id number] [place] 11:50:00 14:13:48 Visit Merlin 350.1.13.58 He alth 9.2.7.2.686 [id number] 1 2022-01-08 2022-01-08 Outpatient R [facility] [id number] Univers 09:30:00 09:30:00 ity of [facility] 2022-01-04 2022-01-04 Refill [facility] 1.2.840.114 [id number] Univers 00:00:00 00:00:00 Katherine MULTISPEC 350.1.13.10 ity of [place]2.[place].2.[place] [phone] [facility] AND [address] [facility]ES [facility]IC 2021-12-18 2021-12-18 [facility] 4 1.2.840.114 [id number] [place] 10:45:00 12:22:03 Visit Merlin 350.1.13.58 He alth 9.2.7.2.686 [id number] 1 2021-12-18 2021-12-18 Telephone [facility] 1.2.840.114 [id number] [facility] 00:00:00 00:00:00 Katherine MULTISPEC 350.1.13.10 ity of [facility] IALTY 4.2.7.2.[place] [phone] [facility] AND [address] [facility]ETES [facility]INIC 2021-12-12 2021-12-12 Outpatient R [facility] [id number] Univers 14:00:00 15:04:36 KATHERINE itnaa [facility] 2021-12-12 2021-12-12 Office [facility] 1.2.840.114 [id number] Univers 14:00:00 15:04:36 Visit Katherine ROLAND 350.1.13.10 ity of [place] IALTY 4.2.7.2.686 [facility] [phone] [address] [facility]ES [facility]INIC 2021-11-14 2021-11-14 (TEL) STLMLC STLMLC [id number] Co mmon 00:00:00 00:00:00 [facility] 2021-10-02 2021-10-02 Orders Doctor GRACIELA 1.2.840.114 [id number] Univers 00:00:00 00:00:00 Only Unassigned, TIFFANY 350.1.13.10 ity of [place] [facility]OSPITAL 4.2.7.2.686 Arslan as [phone] [place] [address] [place] 2021-10-02 2021-10-02 OFFICE STLC STLC [id number] Co mmon 00:00:00 00:00:00 VISIT NEW [facility] it PT LEVEL 4 - [facility] 2021-09-25 2021-09-25 Telephone [facility] 1.2.840.114 [id number] Univers 00:00:00 00:00:00 Katherine ROLAND 350.1.13.10 ity of [place] I[place]TY 4.2.7.2.686 [facility] [phone] [facility] AND [address] [facility]ES [facility]INIC 2021-08-03 2021-08-03 Orders Doctor GRACIELA 1.2.840.114 [id number] Univers 00:00:00 00:00:00 Only Unassigned, TIFFANY 350.1.13.10 ity of [place] HOSPITAL 4.2.7.2.686 Arslan as [phone] [facility] 009 Branch 2021-08-02 2021-08-02 Telephone [facility] 1.2.840.114 [id number] Univers 00:00:00 00:00:00 Katherine MYERSPEC 350.1.13.10 ity of [facility] IALTY 4.2.7.2.686 [facility] [phone] [facility] AND [address] [facility]ETES [facility]INIC 2021-06-25 2021-06-25 [facility] 1.2.840.114 [id number] Univers 00:00:00 00:00:00 Katherine ROLAND 350.1.13.10 ity of [place] 4.2.7.2.686 [facility] [place] [phone] [address] [facility]ETES [facility]INIC 2021-06-20 2021-06-20 Office Ibrahima [place] [address] 1.2.840.114 [id number] [place] 10:00:00 11:19:23 Visit Merlin 350.1.13.58 [facility] 9.2.7.2.686 [phone] 1 2021-06-13 2021-06-13 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 [facility] 1.2.840.114 [id number] Univers 15:15:00 15:30:00 Visit Katherine Liz 350.1 .13.10 ity jana OM[place] 4.2.7.2.686 [facility] [place] [phone] [facility] AND [address] DI[facility]ETES [facility]INIC 2021-06-13 2021-06-13 [facility] [id number] Univers 14:00:00 15:10:14 KATHERINE malave [facility] 2021-06-13 2021-06-13 [facility] 1.2.840.114 [id number] Univers 14:00:00 15:10:14 Visit Katherine ROLAND 350.1.13.10 ity Pantera [place] 4.2.7.2.686 [facility] [place] [phone] [address] [facility]ETES [facility]INIC 2021-06-13 2021-06-13 Outpatient [facility] [id number] Univers 14:00:00 15:10:14 KATHERINE malave [facility] 2021-06-13 2021-06-13 Orders Doctor OWENS 1.2.840.114 [id number] Univers 00:00:00 00:00:00 Only Unassigned, TIFFANY 350.1.13.[address] [facility] 4.2.7.2.686 Arslan as [phone] [place] [address] [place] 2021-05-11 2021-05-11 Telephone [facility] 1.2.840.114 [id number] [facility] 00:00:00 00:00:00 Katherine MULTISPEC 350.1.13.10 ity of [place].2.7.2.[place] [id number] [facility] AND [address] DI[facility]ETES [facility]INIC 2021-04-18 2021-04-18 Office Pending sale to [facility] 4 1.2.840.114 [id number] NM 10:15:00 11:27:18 Visit Merlin 350.1.13.58 He alth 9.2.7.2.686 [id number] 1 2021-04-11 2021-04-11 Telephone [facility] 1.2.840.114 [id number] [facility] 00:00:00 00:00:00 Katherine MULTISPEC 350.1.13.10 ity of [place] 4.2.7.2.686 [facility] [id number] [facility] AND [address] DI[facility]ETES CLINIC 2021-02-28 2021-02-28 Refill [facility] 1.2.840.[id number] [place] [address] 00:00:00 00:00:00 Katherine MULTISPEC 350.1.13.10 ity of [place] 4.2.7.2.686 [facility] [phone] [facility] AND [address] DI[facility]ETES CLINIC 2021-01-16 2021-01-16 Office Pending sale to [facility] 4 1.2.840.114 [id number] NM 11:00:00 12:21:40 Visit Merlin 350.1.13.58 He alth 9.2.7.2.686 [id number] 1 2021-01-01 2021-01-01 Patient [facility] 1.2.840.114 [id number] 00:00:00 00:00:00 Secure Msg Katherine MULTISPEC 350.1.13.10 Byrdaj [place] 4.2.7.2.686 [place] [phone] [place] [address] DIABETES CLINIC 2021-01-01 2021-01-01 Patient [facility] 1.2.840.114 [id number] Univers 00:00:00 00:00:00 Secure Msg Katherine MYERSNURIS 350.1.13.10 ity of [place] IAY 4.2.7.2.686 [facility] [place] [phone] [facility] AND [address] DIABETES CLINIC 2020-12-07 2020-12-07 Telemedici [facility] 1.2.840.114 [id number] 07:57:38 13:49:01 ne Visit Katherine ROLAND 350.1.13.10 [place] IALTY 4.2.7.2.[address] [place] [address] [phone] [place] [address] [facility]ES CLINIC 2020-12-07 2020-12-07 Telemedici [facility] 1.2.840.114 [id number] Univers 07:57:38 13:49:01 ne Visit Katherine MYERSNURIS 350.1.13.10 ity of [place] BAI[place] 4.2.7.2.686 [facility] [place] [phone] [facility] AND [address] [facility]ETES [facility]INIC 2020-12-07 2020-12-07 [facility] [id number] Univers 11:30:00 11:30:00 KATHERINE malave [facility] 2020-12-04 2020-12-04 Nurse Nurse, [facility] Allergy [facility] 1.2.840.114 [id number] Univers 14:07:08 14:37:08 Visit Katherine Liz 350.1 .13.10 ity of [place] 4.2.7.2.686 [facility] [place] [phone] [facility] AND [address] [facility]ES [facility] 2020-12-04 2020-12-04 Outpatient R AGUSTO [facility] [id number] Univers 14:30:00 14:30:00 KATHERINE malave [facility] 2020-11-30 2020-11-30 Outpatient R AGUSTO [facility] [id number] Univers 10:45:00 10:45:00 KATHERINE malave [facility] 2020-11-29 2020-11-29 Outpatient R [facility] [id number] Univers 12:00:00 12:00:00 KATHERINE ity of [facility] 2020-11-28 2020-11-28 Telephone [facility] 1.2.840.114 [id number] Univers 00:00:00 00:00:00 Katherine MYERSPEC 350.1.13.10 ity of [place]2.[place] [id number] [address] [facility]ES [facility]IN[facility] 2020-11-28 2020-11-28 Orders Doctor GRACIELA 1.2.840.114 [id number] Univers 00:00:00 00:00:00 Only Unassigned, TIFFANY 350.1.13.10 ity of [facility] 4.2.7.2.686 [place] as [phone] [address] 2020-11-22 2020-11-22 Telephone [facility] 1.2.840.114 [id number] Univers 00:00:00 00:00:00 Katherine MYERSPEC 350.1.13.10 ity of [place].2.7.2.[place] [phone] [address] DI[facility]ETES CLINIC 2020-11-21 2020-11-21 Office Ibrahima [facility] 4 1.2.840.114 [id number] 11:30:37 14:00:58 Visit Merlin 350.1.13.58 9.2.7.2.686 [id number] 1 2020-11-21 2020-11-21 Office Ibrahima [facility] 4 1.2.840.114 [id number] NM 11:30:37 14:00:58 Visit Merlin 350.1.13.58 He alth 9.2.7.2.686 [id number] 1 2020-10-31 2020-10-31 Patient [facility] 1.2.840.114 [id number] Univers 00:00:00 00:00:00 Secure Msg Katherine MULTISPEC 350.1.13.10 ity of [place] IAY 4.2.7.2.686 [facility] [id number] [facility] AND [address] DIABETES CLINIC 2020-10-30 2020-10-30 Nurse Nurse, [facility] Allergy [facility] 1.2.840.114 [id number] Univers 13:55:57 14:25:57 Visit Katherine Liz [place] [facility] 350.1 .13.10 ity of IALTY 4.2.7.2.686 [facility] [place] [phone] [facility] AND [address] [facility]ETES [facility]INIC 2020-10-30 2020-10-30 Outpatient R [facility] [id number] Univers 14:00:00 14:00:00 KATHERINE malave [facility] 2020-10-16 2020-10-16 Outpatient JUDSON BERNALVÍCTOR MDA [id number] 07:40:23 07:40:23 RASTA marlow 2020-10-16 2020-10-16 Outpatient JUDSON BERNALVÍCTOR MDA [id number] 07:04:46 07:19:11 RASTA marlow 2020-10-02 2020-10-02 Nurse Nurse, [facility] 1.2.840.114 [id number] Univers 15:25:21 15:55:21 Visit Katherine Liz [facility] 350.1 .13.10 ity of IALTY 4.2.7.2.686 [facility] [phone] [facility] AND [address] DI[facility]ETES [facility]INIC 2020-10-02 2020-10-02 [facility] [id number] Univers 15:30:00 15:30:00 KATHERINE malave [facility] 2020-09-06 2020-09-06 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 [facility] 1.2.840.114 [id number] Univers 14:58:52 15:13:52 Visit Katherine Liz [facility] 350.1 .13.10 ity of IALTY 4.2.7.2.686 [facility] [place] [id number] [facility] AND [address] DIABETES CLINIC 2020-09-06 2020-09-06 Office [facility] 1.2.840.114 [id number] Univers 14:09:16 14:59:45 Visit Katherine ROLAND 350.1.13.10 ity of [facility] 4.2.7.2.686 [place] [phone] [address] DIABETES [facility] 2020-09-06 2020-09-06 Outpatient R [facility] [id number] Univers 14:00:00 14:00:00 KATHERINE itnaa [facility] 2020-08-29 2020-08-[address] [facility] 1.2.840.114 [id number] Univers 00:00:00 00:00:00 Outreach Sanya HARDWICK 350.1.13.10 i ty of [facility] 4.2.7.2.686 [place] [phone] [address] 2020-08-08 2020-08-08 Outpatient R [facility] [id number] Univers 14:30:00 14:30:00 KATHERINE malave [facility] 2020-08-08 2020-08-08 Telephone [facility] 1.2.840.114 [id number] Univers 00:00:00 00:00:00 Katherine ROLAND 350.1.13.10 ity of [facility] 4.2.7.2.686 [facility] [place] [phone] [address] [facility]ES [facility] 2020-07-20 2020-07-20 Orders Doctor GRACIELA 1.2.840.114 [id number] Univers 00:00:00 00:00:00 Only Unassigned, TIFFANY 350.1.13.[address] [facility] 4.2.7.2.686 Ar[place]an [place] [phone] [place] [address] [place] 2020-07-17 2020-07-17 Telephone [facility] 1.2.840.114 [id number] Univers 00:00:00 00:00:00 Katherine ROLAND 350.1.13.10 ity of [facility] 4.2.7.2.686 [place] [phone] [address] [facility]ES [facility]INIC 2020-07-11 2020-07-11 Telephone [facility] 1.2.840.114 [id number] Univers 00:00:00 00:00:00 Katherine MULTISPEC 350.1.13.10 ity of [place] 4.2.7.2.686 [place] [phone] [address] [facility]ETES [facility]IN[facility] 2020-06-26 2020-06-26 Telephone [facility] 1.2.840.114 [id number] Univers 00:00:00 00:00:00 Katherine PRIMARY 350.1.13.10 it y of [place] C[place] 4.2.7.2.[place] [phone] [address] 2020-06-23 2020-06-23 Telephone [facility] 1.2.840.114 [id number] Univers 00:00:00 00:00:00 Katherine PRIMARY 350.1.13.10 it y of [place] 4.2.7.2.[place] [phone] [address] 2020-06-08 2020-06-08 Patient [facility] 1.2.840.114 [id number] Univers 00:00:00 00:00:00 Secure Msg Katherine MULTISPEC 350.1.13.10 ity of [place] 4.2.7.2.686 [place] [phone] [address] [facility]ES [facility]IN[facility] 2020-06-08 2020-06-08 Patient [facility] 1.2.840.114 [id number] Univers 00:00:00 00:00:00 Secure Msg Katherine MULTISPEC 350.1.13.10 ity of [place] 4.2.7.2.686 [place] [phone] [address] DI[facility]ETES [facility]INIC 2020-06-07 2020-06-07 Telephone [facility] 1.2.840.114 [id number] Univers 00:00:00 00:00:00 Katherine PRIMARY 350.1.13.10 it y of [place] 4.2.7.2.[place] [phone] [facility] [place] 2020-06-06 2020-06-06 Outpatient R AGUSTO [facility] [id number] Univers 10:30:00 10:30:00 KATHERINE ity [facility] 2020-06-06 2020-06-06 Telemedici [facility] 1.2.840.114 [id number] Univers 08:32:58 09:02:58 ne Visit Katherine PRIMARY 350.1.13.[address] [facility] 4.2.7.2.686 [place] [phone] [facility] [place] 2020-05-19 2020-05-19 Telephone [facility] 1.2.840.114 [id number] Univers 00:00:00 00:00:00 Katherine MULTISPEC 350.1.13.10 ity of [facility] 4.2.7.2.686 [place] [phone] [facility] MIGUELINA CARR 0[address] [place] [facility] 2020-05-15 2020-05-15 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 Juan, Darius Lab Main [facility] 1.2.8 40.114 [id number] Univers 16:14:44 16:29:44 Visit Ilir Merlos 350.1.13.10 ity of [place] 4.2.7.2.686 [place] [phone] [facility] 2020-05-15 2020-05-15 Outpatient R LUCIANA [facility] [id number] Univers 16:15:00 16:15:00 ILIR ity [facility] 2020-05-15 2020-05-15 Orders Doctor GRACIELA 1.2.840.114 [id number] Univers 00:00:00 00:00:00 Only Unassigned, TIFFANY 350.1.13.10 ity of [place] [facility]PITAL 4.2.7.2.686 Arslan as [phone] [facility] [address] 2020-05-12 2020-05-12 Telephone [facility] 1.2.842.415 [id number] Univers 00:00:00 00:00:00 Ilir MULTISPEC 350.1.13.10 ity of [place] 4.2.7.2.686 [place] [phone] [facility] AND CARR [address] [place] [facility] 2020-05-09 2020-05-09 Telephone [facility] 1.2.840.114 [id number] Univers 00:00:00 00:00:00 Katherine PRIMARY 350.1.13.10 it y of [place] 4.2.7.2.[place] [phone] Hi dicblaise 056 [place] 2020-04-17 2020-04-17 Outpatient EL BUCKNER GABE, MDA MDA [id number] 10:14:05 10:53:19 RASTA marlow 2020-04-11 2020-04-11 Outpatient EL PASHA, MDA MDA [id number] 10:57:00 23:59:00 Joshua marlow 2020-04-11 2020-04-11 Outpatient EL BUCKNER GABE, MDA MDA [id number] 10:09:52 10:56:00 RASTA marlow 2020-04-11 2020-04-11 Outpatient [facility] GABE, MDA MDA [id number] 08:24:21 10:08:00 RASTA marlow 2020-04-10 2020-04-10 [facility] 1.2.840.114 [id number] Univers 00:00:00 00:00:00 Katherine PRIMARY 350.1.13.10 it y of [place] 4.2.7.2.[place] [phone] Hi dicblaise [address] [place] [address] 2020-04-06 2020-04-06 [facility] 1.2.840.114 [id number] Univers 00:00:00 00:00:00 Katherine PRIMARY 350.1.13.10 it y of [place] 4.2.7.2.[place] [phone] Hi dical 056 [place] 2020-04-06 2020-04-06 [facility] 1.2.840.114 [id number] Univers 00:00:00 00:00:00 Katherine PRIMARY 350.1.13.10 it y of [place] 4.2.7.2.[place] [phone] Hi dical 056 [place] 2020-04-04 2020-04-04 Office [facility] 1.2.840.114 [id number] Univers 10:30:15 11:35:50 Visit Katherine PRIMARY 350.1.13.10 it y of [place] 4.2.7.2.686 [place] [phone] Hi dical 056 [place] 2020-04-04 2020-04-04 [facility] [id number] Univers 10:30:00 10:30:00 KATHERINE ity of [facility] 2020-03-28 2020-03-28 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 Juan, Adc Lab Main [facility] 1.2.8 40.114 [id number] Univers 11:03:47 11:18:47 Visit Ilir Merlos 350.1.13.10 ity of [place] 4.2.7.2.686 [place] Profess[place] [phone] Hi dical nal [address] [place] [address] 2020-03-28 2020-03-28 Outpatient R LUCIANA [facility] [id number] Univers 11:00:00 11:00:00 ILIR ity [facility] 2020-03-28 2020-03-28 Orders Doctor GRACIELA 1.2.840.114 [id number] Univers 00:00:00 00:00:00 Only Unassigned, TIFFANY 350.1.13.[address] [facility] 4.2.7.2.686 Ar[place]an as [phone] [address] 2020-03-27 2020-03-27 Telephone [facility] 1.2.840.114 [id number] Univers 00:00:00 00:00:00 Katherine PRIMARY 350.1.13.10 it y [place] 4.2.7.2.[place] [phone] Hi dicaz [address] [place] [address] 2020-02-22 2020-03-07 Office [facility] 1.2.840.114 [id number] Univers 14:56:32 14:50:56 Visit Katherine PRIMARY 350.1.13.10 it y of [place] 4.2.7.2.686 [place] [phone] Hi dical 056 [place] 2020-02-22 2020-02-22 [facility] [id number] Univers 14:30:00 14:30:00 KATHERINE malave [facility] 2020-02-17 2020-02-18 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 Juan, Adc Lab Main [facility] 1.2.8 40.114 [id number] Univers 11:16:22 11:39:16 Visit Xavi Jesus 350.1.13.10 ity of [place] 4.2.7.2.686 [facility] [phone] Hi dical nal [facility] 2020-02-18 2020-02-18 Outpatient EL DUDLEY BERNAL MDA MDA [id number] 09:54:23 10:36:07 RASTA marlow 2020-02-18 2020-02-18 Outpatient JUDSON BERNAL MDA MDA [id number] 00:00:00 00:00:00 RASTA marlow 2020-02-17 2020-02-17 Outpatient [facility] [id number] Univers 12:30:00 12:30:00 RASTA malave [facility] 2020-02-17 2020-02-17 Outpatient EL DUDLEY BERNAL MDA MDA [id number] 00:00:00 00:00:00 RASTA marlow 2020-02-17 2020-02-17 Orders Doctor OWENS 1.2.840.114 [id number] Univers 00:00:00 00:00:00 Only Unassigned, TIFFANY [id number] ity of [facility] 4.2.7.2.686 [facility] as [phone] [address] 2020-01-25 2020-01-25 [facility] [id number] Univers 13:00:00 13:00:00 KATHERINE malave [facility] 2020-01-20 2020-01-20 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 Juan, Ad[facility] Lab Main [facility] 1.2.8 40.114 [id number] Univers 12:48:09 13:03:09 Visit Xavi Jesus [id number] ity [place] [employer] [place] [phone] Hi dical nal [facility] 2020-01-20 2020-01-20 Outpatient R XAVI [facility] [id number] Univers 13:00:00 13:00:00 ity of [facility] 2020-01-20 2020-01-20 Orders Doctor GRACIELA 1.2.840.114 [id number] Univers 00:00:00 00:00:00 Only Unassigned, TIFFANY [id number] ity of [facility] [id number] [place] as [phone] [address] 2020-01-07 2020-01-07 Telephone [facility] 1.2.840.114 [id number] Univers 00:00:00 00:00:00 Katherine MULTISPEC [id number] ity of [facility] [place]2.7.2.[place] [phone] [facility] [address] [place] [address] [facility] 2020-01-01 2020-01-01 Orders Doctor GRACIELA 1.2.840.114 [id number] Univers 00:00:00 00:00:00 Only Unassigned, TIFFANY [id number] ity of [facility] [id number] [place] as [phone] [address] 2019-12-21 2019-12-30 Telemedici [facility] 1.2.840.114 [id number] Univers 07:12:51 13:37:37 ne Visit Katherine HARDWICK [id number] [facility] 4.2.7.2.[place] [phone] Hi dical [address] 2019-12-30 2019-12-30 Outpatient R AGUSTO [facility] [id number] Univers 11:00:00 11:00:00 KATHERINE malave of [facility] 2019-12-30 2019-12-30 Orders Doctor GRACIELA 1.2.840.114 [id number] Univers 00:00:00 00:00:00 Only Unassigned, TIFFANY [id number] ity of [facility] [id number] [place] as [phone] [facility] [address] 2019-12-28 2019-12-28 Orders Doctor GRACIELA 1.2.840.114 [id number] Univers 00:00:00 00:00:00 Only Unassigned, TIFFANY [id number] ity of [facility] 4.2.7.2.686 [place] as [phone] [facility] [address] 2019-12-24 2019-12-24 Outpatient JUDSON BERNAL [facility] [id number] 00:00:00 00:00:00 RASTA marlow 2019-12-23 2019-12-23 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 [facility] UNIVERSIT [id number] Univers 10:02:42 10:24:52 Visit Katherine Liz [facility] 350.1. 13.10 ity of [place] [phone] [facility] [address] 2019-12-23 2019-12-23 Office Fellow, Infectious Disease UNIVERS IT [id number] Univers 08:42:41 09:59:44 Visit Olga Anderson [facility] 350.1.13.10 it[place] [phone] [facility] [address] 2019-12-23 2019-12-23 Outpatient Afia ANDERSON [facility] [id number] Univers 08:30:00 08:30:00 OLGA malave [facility] 2019-12-22 2019-12-22 Orders Doctor OWENS 1.2.840.114 [id number] Univers 00:00:00 00:00:00 Only Unassigned, TIFFANY 350.1.13.10 ity of [place] [facility] 4.2.7.2.686 [place] [phone] [facility] [address] 2019-12-22 2019-12-22 Telephone Luciana NMMEENA [id number] Univers 00:00:00 00:00:00 Ilir MULTISPEC 350.1.13.10 [place] [phone] [facility] LILLY [address] [place] [address] DIABETES CLINIC 2019-12-21 2019-12-21 [facility] [id number] Univers 13:00:00 13:00:00 KATHERINE malave [facility] 2019-12-21 2019-12-21 Telephone [facility] [id number] Univers 00:00:00 00:00:00 Katherine MYERSPEC 350.1.13.10 ity [facility] 4.2.7.2.686 [facility] [phone] [facility] AND [address] DIABETES CLINIC 2019-12-17 2019-12-17 Outpatient EL BUCKNER GABE, MDA MDA 003 [id number] 13:18:33 14:03:22 RASTA marlow 2019-12-13 2019-12-13 [facility] [id number] Univers 00:00:00 00:00:00 CHARAN malave o [facility] 2019-12-09 2019-12-09 Office GIA Trent 1.2.840.114 [id number] Univers 09:00:00 10:00:00 Visit Gabino Alaina 350.1.13.10 it y of [facility] 4.2.7.2.686 [facility] [phone] [address] 2019-12-09 2019-12-09 Outpatient R KEAGAN, [facility] [id number] Univers 09:00:00 09:00:00 GABINO malave [facility] 2019-12-08 2019-12-08 Outpatient EL PASHA, MDA MDA [id number] 10:07:40 23:59:00 Joshua marlow 2019-12-08 2019-12-08 Outpatient EL BUCKNER GABE, MDA MDA [id number] 16:31:29 16:34:31 RASTA marlow 2019-12-08 2019-12-08 Outpatient EL BUCKNER GABE, MDA MDA [id number] 14:40:06 16:25:13 RASTA marlow 2019-12-08 2019-12-08 Outpatient EL MDA MDA [id number] 14:36:22 14:36:33 Sreedhar marlow 2019-11-29 2019-12-07 Office [facility] [id number] Univers 13:48:14 15:22:36 Visit Katherine MYERSPEC 350.1.13.10 ity of [place] IALTY 4.2.7.2.686 [facility] [place] [id number] [facility] AND [address] DIABETES CLINIC 2019-12-06 2019-12-06 Outpatient EL DUDLEY BERNAL, MDA MDA [id number] MD 14:11:01 14:21:35 RASTA marlow 2019-12-06 2019-12-06 Outpatient EL MDA MDA [id number] MD 00:00:00 00:00:00 Sreedhar marlow 2019-12-02 2019-12-02 Outpatient R LUCIANA [facility] [id number] Univers 10:45:00 10:45:00 ILIR ity [facility] 2019-12-02 2019-12-02 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 Juan, [facility] Main [facility] 1.2.8 40.114 [id number] Univers 10:18:59 10:33:59 Visit Ilir Merlos 350.1.13.10 ity of [place] 4.2.7.2.686 [phone] [facility] 2019-12-01 2019-12-01 Telephone [facility] [id number] Univers 00:00:00 00:00:00 Ilir MULTISPEC 350.1.13.10 ity of [place] 4.2.7.2.686 [facility] [place] [id number] [address] DIABETES CLINIC 2019-11-30 2019-11-30 Outpatient R LUCIANA [facility] [id number] Univers 15:50:58 23:59:00 ILIR ity [facility] 2019-11-30 2019-11-30 Hospital Luciana [facility] 1.2.840.114 [id number] Univers 15:50:00 23:59:00 Encounter Ilir Kent 350.1.13.10 ity of [place] [phone] [facility] [address] 2019-11-30 2019-11-30 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 Juan, [facility] Lab Main [place] 1.2.8 40.114 [id number] Univers 15:18:09 15:33:09 Visit Ilir Merlos 350.1.13.10 ity of [place] [phone] Hi dical nal [facility] 2019-11-29 2019-11-29 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 [facility] 1.2.840.114 [id number] Univers 15:02:52 15:12:52 Visit Katherine Liz MULTISPEC 350.1 .13.10 ity of [place] [id number] [facility] AND CARR [address] DIABETES CLINIC 2019-11-29 2019-11-29 [facility] [id number] Univers 14:00:00 14:00:00 KATHERINE malave [facility] 2019-11-13 2019-11-14 Outpt Diag nullFlavo [facility] [id number] Memoria 15:06:00 04:59:00 Services r Outpatient 00 l Imaging Leonardo [place] 2019-11-13 2019-11-[address] [facility] [id number] 10:06:00 23:59:00 Bochra 00 Results Test Description Test Time Test Comments Results Result Comments Source CBC and differential 2021-04-26 08:00:00 Test Item Value Reference Range Interpretation Comme nts WHITE BLOOD CELL COUNT See_Comment [Aut omated message] The (test code = 6690-2) system which generated this result tra nsmitted reference range : 3.8 - 10.8 Thousand/u L. The reference range was not used to interpr et this result as normal/abnormal . RED BLOOD CELL COUNT See_Comment [Autom ated message] The (test code = 789-8) system w [facility] generated this result tra nsmitted reference range : 3.80 - 5.10 Million/uL . The reference range was not used to interpr et this result as normal/abnormal . HEMOGLOBIN (test code = 11.2 g/dL 11.7-15.5 L 718-7) HEMATOCRIT (test code = 33.4 % 35-45 L 4544-3) MCV (test code = 787-2) 87.7 fL 80-100 MCH (test code = 785-6) 29.4 pg 27-33 MCHC (test code = 786-4) 33.5 g/dL 32-36 RDW (test code = 788-0) 13.7 % 11-15 PLATELET COUNT (test See_Comment [Autom ated message] The code = 777-3) system which g enerated this result tra nsmitted reference range : 140 - 400 Thousand/uL . The reference range was not used to interpr et this result as normal/abnormal . MPV (test code = 776-5) 10.2 fL 7.5-12.5 ABSOLUTE NEUTROPHILS See_Comment [Autom ated message] The (test code = 751-8) system w [email or web address] generated this result tra nsmitted reference range : 1500 - 7800 cells/uL. The reference range was not used to interpr et this result as normal/abnormal . ABSOLUTE LYMPHOCYTES See_Comment [Autom ated message] The (test code = 731-0) system w [facility] generated this result tra nsmitted reference range : 850 - 3900 cells/uL. The reference range was not used to interpr et this result as normal/abnormal . ABSOLUTE MONOCYTES (test See_Comment [A utomated message] The code = 742-7) system which g enerated this result tra nsmitted reference range : 200 - 950 cells/uL. T he reference range was not used to interpr et this result as normal/abnormal . ABSOLUTE EOSINOPHILS See_Comment [Autom ated message] The (test code = 711-2) system w [facility] generated this result tra nsmitted reference range : 15 - 500 cells/uL. The r eference range was not u sed to interpret this result as normal/abnormal . ABSOLUTE BASOPHILS (test See_Comment [A utomated message] The code = 704-7) system which g enerated this result tra nsmitted reference range : 0 - 200 cells/uL. The r eference range was not u sed to interpret this result as normal/abnormal . NEUTROPHILS (test code = 59.7 % 770-8) LYMPHOCYTES (test code = 31.6 % 736-9) MONOCYTES (test code = 7.9 % 5905-5) EOSINOPHILS (test code = 0.4 % 713-8) BASOPHILS (test code = 0.4 % 706-2) RAC (test code = RAC) Performing Organization Information: ? ?Site ID: RGA ? ?Name: [employer] [facility] ? ?Address: [address] [place] [phone] ? ?Director: KALEB OLEA MD Lab Interpretation (test Abnormal code = 73903-6) [facility] [id number] 07:00:00 Test Item Value Reference Range Interpretation Comments GLUCOSE (test code = 86 mg/dL 65-99 ? 2345-7) Fasting referen ce interval UREA NITROGEN (BUN) 6 mg/dL 7-25 L (test code = 3094-0) CREATININE (test 0.96 mg/dL 0.5-1.1 code = 2160-0) eGFR NON- See_Comment [Automated MEXICAN (test code message] The = 46750-2) system which generated this result transmitted reference range : > OR = 60 mL/min/1.73m2. The reference range was not used to interpr et this result as normal/abnormal . eGFR See_Comment [Automated M[place]ICAN (test code message] The = 77748-2) system which generated this result transmitted reference range : > OR = 60 mL/min/1.73m2. The reference range was not used to interpr et this result as normal/abnormal . BUN/CREATININE RATIO See_Comment [Autom ated (test code = 3097-3) message ] The system which generated this result transmitted reference range : 6 - 22 (calc). The reference range was not used to interpr et this result as normal/abnormal . SODIUM (test code = 138 mmol/L 438-731 9152-2) POTASSIUM (test code 3.9 mmol/L 3.5-5.3 = 2823-3) CHLORIDE (test code 105 mmol/L 98-110 = 2075-0) CARBON DIOXIDE (test 28 mmol/L 20-32 code = 2027-9) CALCIUM (test code = 9 mg/dL 8.6-10.2 64136-1) PROTEIN, TOTAL (test 6.8 g/dL 6.1-8.1 code = 2885-2) ALBUMIN (test code = 3.9 g/dL 3.6-5.1 1751-7) GLOBULIN (test code See_Comment [Automa thang = 22618-5) message] The system which generated this result transmitted reference range : 1.9 - 3.7 g/dL (calc). The reference range was not used to interpret this result as normal/abnormal . ALBUMIN/GLOBULIN See_Comment [Automated RATIO (test code = message] The 1759-0) system which generated this result transmitted reference range : 1.0 - 2.5 (calc ). The reference range was not used to interpr et this result as normal/abnormal . BILIRUBIN, TOTAL 0.4 mg/dL 0.2-1.2 (test code = 1975-2) ALKALINE PHOSPHATASE 58 U/L 31-125 (test code = 6768-6) AST (test code = 10 U/L 10-30 1920-8) ALT (test code = 8 U/L 12-05 1742-6) RAC (test code = Performing RAC) Organization Information: ? ?Site ID: RGA ? ?Name: [employer] [facility] ? ?Address: [address] [place], [place] [id number] ? ?Director: KALEB OLEA MD Lab Interpretation Abnormal (test code = 68494-3) [facility] [id number] 03:00:00 Test Item Value Reference Range Interpretation Comments GLUCOSE (test code = 98 mg/dL 65-99 ? 2345-7) Fasting referen ce interval UREA NITROGEN (BUN) 5 mg/dL 7-25 L (test code = 3094-0) CREATININE (test 0.92 mg/dL 0.50-1.10 code = 2160-0) eGFR NON- 89 See_Comment [Automated MEXICAN (test code message] The = 61655-2) system which generated this result transmitted reference range : > OR = 60 mL/min/1.73m2. The reference range was not used to interpr et this result as normal/abnormal . eGFR 103 See_Comment [Automated MEXICAN (test code message] The = 36716-9) system which generated this result transmitted reference range : > OR = 60 mL/min/1.73m2. The reference range was not used to interpr et this result as normal/abnormal . BUN/CREATININE RATIO 5 See_Comment L [Autom ated (test code = 3097-3) message ] The system which generated this result transmitted reference range : 6 - 22 (calc). The reference range was not used to interpr et this result as normal/abnormal . SODIUM (test code = 139 mmol/L 585-383 6050-2) POTASSIUM (test code 3.8 mmol/L 3.5-5.3 = 2823-3) CHLORIDE (test code 107 mmol/L 98-110 = 2075-0) CARBON DIOXIDE (test 24 mmol/L 20-32 code = 2028-9) CALCIUM (test code = 9.4 mg/dL 8.6-10.2 57064-2) PROTEIN, TOTAL (test 7.2 g/dL 6.1-8.1 code = 2885-2) ALBUMIN (test code = 4.2 g/dL 3.6-5.1 1751-7) GLOBULIN (test code 3.0 See_Comment [Automa thang = 64699-9) message] The system which generated this result transmitted reference range : 1.9 - 3.7 g/dL (calc). The reference range was not used to interpret this result as normal/abnormal . ALBUMIN/GLOBULIN 1.4 See_Comment [Automated RATIO (test code = message] The 1759-0) system which generated this result transmitted reference range : 1.0 - 2.5 (calc ). The reference range was not used to interpr et this result as normal/abnormal . BILIRUBIN, TOTAL 0.4 mg/dL 0.2-1.2 (test code = 1975-2) ALKALINE PHOSPHATASE 61 U/L 31-125 (test code = 6768-6) AST (test code = 15 U/L 10-30 1920-8) ALT (test code = 18 U/L 6-29 REPORT 1742-6) COMMENT:FASTING :Y ES RAC (test code = Performing RAC) Organization Information: ? ?Site ID: RGA ? ?Name: [employer] [facility]ARRAR ? ?Address: [address] [place] [phone] ? ?Director: KALEB OLEA MD Lab Interpretation Abnormal (test code = 56353-2) [facility] and [id number] 23:00:00 Test Item Value Reference Range Interpretation Comments WHITE BLOOD CELL 5.8 See_Comment [Automated COUNT (test code = message] The 6690-2) system which generated this result transmitted reference range : 3.8 - 10.8 Thousand/uL. Th e reference range was not used to interpret this result as normal/abnormal . RED BLOOD CELL 4.01 See_Comment [Automated COUNT (test code = message] The 789-8) system which generated this result transmitted reference range : 3.80 - 5.10 Million/uL. The reference range was not used to interpret this result as normal/abnormal . HEMOGLOBIN (test 12.2 g/dL 11.7-15.5 code = 718-7) HEMATOCRIT (test 35.6 % 35.0-45.0 code = 4544-3) MCV (test code = 88.8 fL 80.0-100.0 787-2) MCH (test code = 30.4 pg 27.0-33.0 785-6) MCHC (test code = 34.3 g/dL 32.0-36.0 786-4) RDW (test code = 13.0 % 11.0-15.0 788-0) PLATELET COUNT 265 See_Comment [Automated (test code = message] The 777-3) system which generated this result transmitted reference range : 140 - 400 Thousand/uL. Th e reference range was not used to interpret this result as normal/abnormal . MPV (test code = 10.0 fL 7.5-12.5 776-5) ABSOLUTE 3219 See_Comment [Automated NEUTROPHILS (test message] T he code = 751-8) system which generated this result transmitted reference range : 1500 - 7800 cells/uL. The reference range was not used to interpret this result as normal/abnormal . ABSOLUTE 1995 See_Comment [Automated LYMPHOCYTES (test message] T he code = 731-0) system which generated this result transmitted reference range : 850 - 3900 cells/uL. The reference range was not used to interpret this result as normal/abnormal . ABSOLUTE MONOCYTES 528 See_Comment [Automat ed (test code = message] The 862-7) system which generated this result transmitted reference range : 200 - 950 cells/uL. The reference range was not used to interpret this result as normal/abnormal . ABSOLUTE 29 See_Comment [Automated EOSINOPHILS (test message] T he code = 711-2) system which generated this result transmitted reference range : 15 - 500 cells/uL. The reference range was not used to interpret this result as normal/abnormal . ABSOLUTE BASOPHILS 29 See_Comment [Automat ed (test code = message] The 704-7) system which generated this result transmitted reference range : 0 - 200 cells/u L. The reference range was not used to interpr et this result as normal/abnormal . NEUTROPHILS (test 55.5 % code = 770-8) LYMPHOCYTES (test 34.4 % code = 736-9) MONOCYTES (test 9.1 % code = 5905-5) EOSINOPHILS (test 0.5 % code = 713-8) BASOPHILS (test 0.5 % REPORT code = 706-2) COMMENT:RADHA Copeland:Naa HA RAC (test code = Performing RAC) Organization Information: ? ?Site ID: RGA ? ?Name: [employer] FARRAR ? ?Address: [address] [place] [phone] ? ?Director: KALEB OLEA MD [facility]
[2023-03-31] MEDS ORDERED: NA CHLORIDE 0.9% 1,000 ML ONE (18:53)
[2023-03-31] MEDS ORDERED: KETOROLAC 30 MG/ML INJ ONE (18:53)
[2023-03-31] MEDS ORDERED: ONDANSETRON 4 MG/2 ML VIAL ONE (18:53)
[2023-03-31 19:02] LABS: Absolute Lymphocytes (CBC) 2.3 K/uL (0.7-4.9); Lymphocytes % 26.2 % (15.3-44.8); MPV 8.3 fL (7.6-11.3); Platelets 319 thou/uL (152-406); RBC Red Blood Cell Count 4.27 M/uL (3.86-4.86)
[2023-03-31 19:06] LABS: Specific Gravity 1.023 (1.005-1.030)
[2023-03-31 19:08] LABS: Specific Gravity 1.023 (1.005-1.030); Urine Bacteria <20 /HPF (<20); Urine Bilirubin NEGATIVE (Negative); Urine Blood Negative (Negative); Urine Clarity Extremely Turbid (Clear); Urine Color Yellow (Yellow); Urine Crystals Unidentified Few /HPF (None Seen); Urine Glucose NEGATIVE (Negative); Urine Mucus 2+ /HPF (None Seen); Urine Protein TRACE (Negative); Urine RBC <5 /HPF (None Seen); Urine Urobilinogen Normal (Normal); Urine pH 5.5 (5.0-7.0)
[2023-03-31 19:18] LABS: Bilirubin Total 1.3 mg/dL (0.2-1.0); Protein, Total 8.2 g/dL (6.4-8.2)
--- NOTE | 2023-03-31 20:18 | RAD REPORT ---
EXAM DESCRIPTION: CT - Abdomen Pelvis W Contrast - 03/31/2023 7:59 pm CLINICAL HISTORY: Abdominal pain COMPARISON: 2021 TECHNIQUE: Computed axial tomography of the abdomen pelvis was obtained. 100 cc Isovue-300 was admin istered intravenously. Oral contrast was not requested which limits evaluation of bowel and appendix All CT scans are performed using dose optimization technique as appropriate and may include automated exposure control or mA/KV adjustment according to patient size. FINDINGS: The liver, spleen, pancreas, adrenal and kidneys appear unremarkable. There is no evidence of diverticulitis. Normal appendix No adnexal mass Small umbilical hernia IMPRESSION: No acute abnormality is displayed.
--- NOTE | 2023-03-31 20:53 | EDPHYS ---
Physician Documentation [facility] Name: Marcie Kapadia Age: 23 yrs Sex: Female : 2000 Arrival Date: 03/31/2023 Time: 17:48 Bed 9 Private MD: ED Physician Amol Greenberg HPI: 04/01 00:06 This 23 yrs old Female presents to ER via Ambulatory with complaints of kb Abdominal Pain, Low Back Pain. 00:06 The patient presents with abdominal pain in the left upper quadrant. Onset: The kb symptoms/episode began/occurred 1 week(s) ago. The symptoms radiate to the left flank. Associated signs and symptoms: Pertinent positives: nausea, Pertinent negatives: dysuria, fever, vomiting. The symptoms are described as constant. Modifying factors: The symptoms are alleviated by nothing, the symptoms are aggravated by movement, pressure. Severity of pain: At its worst the pain was mild moderate in the emergency department the pain is unchanged. The patient has not experienced similar symptoms in the past. The patient has not recently seen a physician. 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 - Social history:: Smoking status: Patient denies any tobacco usage or history of. ROS: 04/01 00:03 Constitutional: Negative for fever, chills, and weight loss, kb Abdomen/GI: Positive for abdominal pain, nausea, Negative for vomiting, diarrhea, constipation, All other systems are negative, Exam: 00:03 Constitutional: This is a well developed, well nourished patient who is awake, alert, kb and in no acute distress. Head/Face: Normocephalic, atraumatic. ENT: Moist Mucous membranes Cardiovascular: Regular rate Respiratory: Respirations even and unlabored. No increased work of breathing. Talking in full sentences Skin: Warm, dry with normal turgor. Normal color. MS/ Extremity: Pulses equal, no cyanosis. Neurovascular intact. Full, normal range of motion. Neuro: Awake and alert, GCS 15, oriented to person, place, time, and situation. Moves all extremities. Normal gait. 00:03 Abdomen/GI: Inspection: abdomen appears normal, Bowel sounds: normal, Palpation: soft, in all quadrants, mild abdominal tenderness, in the left upper quadrant, Vital Signs: 03/31 18:17 BP 118 / 90; Pulse 88; Resp 18 S; Pulse Ox 100% on R/A; Weight 129.27 kg; Pain 8/10; cm10 18:59 BP 127 / 82; Pulse 88; Resp 15; Pulse Ox 99% on R/A; hb 20:30 BP 128 / 80; Pulse 84; Resp 16; Pulse Ox 99% on R/A; hb 18:17 Pain Scale: Adult cm10 MDM: 18:05 Patient medically screened. kb 04/01 00:03 Differential diagnosis: bowel obstruction, diverticulitis, gastritis, gastroesophageal kb reflux disease, non-specific abd pain, Pyelonephritis, urinary tract infection. Data reviewed: vital signs, nurses notes. Counseling: I had a detailed discussion with the patient and/or guardian regarding the historical points, exam findings, and any diagnostic results supporting the discharge/admit diagnosis, lab results, radiology results, the need for outpatient follow up, a family practitioner, a sales merchandise associate, to return to the emergency department if symptoms worsen or persist or if there are any questions or concerns that arise at home. 03/31 18:17 Order name: CBC with Diff; Complete Time: 19:04 kb 03/31 18:17 Order name: CMP; Complete Time: 19:26 kb 03/31 18:17 Order name: Lipase; Complete Time: 19:26 kb 03/31 18:17 Order name: Test, Urine; Complete Time: 19:26 kb 03/31 18:17 Order name: Urinalysis w/ reflexes; Complete Time: 19:26 kb 03/31 18:17 Order name: CT Abd/Pelvis - IV Contrast Only; Complete Time: 20:22 kb 03/31 18:17 Order name: IV Saline Lock; Complete Time: 18:58 kb 03/31 18:17 Order name: Labs collected and sent; Complete Time: 18:58 kb Administered Medications: 03/31 18:58 Drug: NS 0.9% IV 1000 ml IV at 1 bolus Per protocol; 1000 mL bolus Route: IV; Rate: 1 hb bolus; Site: right antecubital; 19:50 Follow up: Response: No adverse reaction; IV Status: Completed infusion; IV Intake: hb 1000ml 18:58 Drug: TORadol - Ketorolac IVP 15 mg IVP once Route: IVP; Site: right antecubital; hb 19:30 Follow up: Response: No adverse reaction hb 18:58 Drug: Ondansetron IVP 4 mg IVP once; over 2 minutes Route: IVP; Site: right antecubital;hb 19:30 Follow up: Response: No adverse reaction hb Disposition Summary: 03/31/23 20:52 Discharge Ordered Notes: Location: Home kb Condition: Stable kb Diagnosis - Upper abdominal pain, unspecified kb Followup: kb - With: Emergency Department - When: As needed - Reason: Worsening of condition Followup: kb - With: Private Physician - When: 2 - 3 days - Reason: Recheck today's complaints, Continuance of care, Re-evaluation by your physician Discharge Instructions: - Discharge Summary Sheet kb - Abdominal Pain, Adult, [id number] kb Forms: - Medication Reconciliation Form kb - Thank You Letter kb - Antibiotic Education kb - Prescription Opioid Use kb - Patient Portal Instructions kb - Leadership Thank You Letter kb Prescriptions: - Zofran 4 mg Oral tablet - take 1 tablet ORAL route every 6 hours As needed; 12 tablet; Refills: 0, kb Product Selection Permitted - dicyclomine 20 mg Oral tablet - take 1 tablet ORAL route 4 times per day As needed; 20 tablet; Refills: 0, kb Product Selection Permitted Signatures: Dispatcher [employer] Deanne Hernandez, ERLINDA ROLAND-Vero Torres, RN RN Samra Nunez RN RN cm10
--- NOTE | 2023-03-31 20:53 | ER ---
Nurse's Notes [facility] Name: Marcie Kapadia Age: 23 yrs Sex: Female : 2000 Arrival Date: 03/31/2023 Time: 17:48 Bed 9 Private MD: Diagnosis: Upper abdominal pain, unspecified Presentation: 03/31 18:17 Chief complaint: Patient states: LUQ abdominal pain onset last week. Pt states that she cm10 began having left sided back pain that radiates to her upper abdomen. Pt reports nausea. Pt states that she is currently being treated for a UTI. Pt states seeing her PCP last week and was told that "my intestines are inflamed.". Coronavirus screen: Vaccine status: Patient reports receiving the 2nd dose of the covid vaccine. Client denies travel out of the [place] in the last 14 days. Ebola Screen: Patient denies travel to an Ebola-affected area in the 21 days before illness onset. No symptoms or risks identified at this time. Initial Sepsis Screen: Does the patient meet any 2 criteria? No. Patient's initial sepsis screen is negative. Does the patient have a suspected source of infection? No. Patient's initial sepsis screen is negative. Risk Assessment: Do you want to hurt yourself or someone else? Patient reports no desire to harm self or others. Onset of symptoms Onset of symptoms was March 31, 2023. 18:17 Method Of Arrival: Ambulatory cm10 18:17 Acuity: MEREDITH 3 cm10 Triage Assessment: 18:25 General: Appears in no apparent distress. comfortable. 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 - Social history:: Smoking status: Patient denies any tobacco usage or history of. Screenin:00 [facility] ED Fall Risk Assessment (Adult) Score/Fall Risk Level 0 - 2 = Low Risk hb Oriented to surroundings, Maintained a safe environment. Abuse screen: Denies threats or abuse. Denies injuries from another. Nutritional screening: No deficits noted. Tuberculosis screening: No symptoms or risk factors identified. Assessment: 18:59 General: Appears in no apparent distress. Behavior is calm, cooperative. Pain: Pain hb currently is 8 out of 10 on a pain scale. Neuro: Level of Consciousness is awake, alert, obeys commands, Oriented to person, place, time, situation. Cardiovascular: Patient's skin is warm and dry. Respiratory: Respiratory effort is even, unlabored, Respiratory pattern is regular, symmetrical. GI: Reports upper abdominal pain, nausea. : Reports urgency, urinary frequency, left flank pain. EENT: No signs and/or symptoms were reported regarding the EENT system. Derm: Skin is pink, warm \\T\\ dry. Musculoskeletal: No signs and/or symptoms reported regarding the musculoskeletal system. 20:52 Reassessment: Patient appears in no apparent distress at this time. Patient and/or hb family updated on plan of care and expected duration. Pain level reassessed. Patient is alert, oriented x 3, equal unlabored respirations, skin warm/dry/pink. Vital Signs: 18:17 BP 118 / 90; Pulse 88; Resp 18 S; Pulse Ox 100% on R/A; Weight 129.27 kg; Pain 8/10; cm10 18:59 BP 127 / 82; Pulse 88; Resp 15; Pulse Ox 99% on R/A; hb 20:30 BP 128 / 80; Pulse 84; Resp 16; Pulse Ox 99% on R/A; hb 18:17 Pain Scale: Adult cm10 ED Course: 17:52 Patient arrived in ED. im 17:52 [facility] Soliz [facility] kb 17:52 Amol Greenberg MD is Attending Physician. kb 18:21 Triage completed. cm10 18:25 Arm band placed on Patient placed in waiting room. cm10 18:38 Vero Nolan, STEVE is Primary Nurse. hb 18:57 Inserted saline lock: 22 gauge in right antecubital area, using aseptic technique. hb Blood collected. 18:58 CBC with Diff Sent. hb 18:58 CMP Sent. hb 18:58 Lipase Sent. hb 18:58 Test, Urine Sent. hb 18:58 Urinalysis w/ reflexes Sent. hb 19:00 Patient has correct armband on for positive identification. Provided Education on: hb tests, result times. 20:01 CT Abd/Pelvis - IV Contrast Only In Process Unspecified. EDMS 21:23 No provider procedures requiring assistance completed. IV discontinued, intact, hb bleeding controlled, No redness/swelling at site. Administered Medications: 18:58 Drug: NS 0.9% IV 1000 ml IV at 1 bolus Per protocol; 1000 mL bolus Route: IV; Rate: 1 hb bolus; Site: right antecubital; 19:50 Follow up: Response: No adverse reaction; IV Status: Completed infusion; IV Intake: hb 1000ml 18:58 Drug: TORadol - Ketorolac IVP 15 mg IVP once Route: IVP; Site: right antecubital; hb 19:30 Follow up: Response: No adverse reaction hb 18:58 Drug: Ondansetron IVP 4 mg IVP once; over 2 minutes Route: IVP; Site: right antecubital;hb 19:30 Follow up: Response: No adverse reaction hb Medication: 19:00 VIS not applicable for this client. hb Intake: 19:50 IV: 1000ml; Total: 1000ml. hb Outcome: 20:52 Discharge ordered by . kb 21:23 Discharged to home ambulatory, with family, hb 21:23 Condition: stable 21:23 Discharge instructions given to patient, Instructed on discharge instructions, follow up and referral plans. medication usage, Demonstrated understanding of instructions, follow-up care, medications, Prescriptions given X 2, 21:24 Patient left the ED. hb Signatures: Dispatcher [employer] EDMS Deanne Soliz, ERLINDA CRUZP-Vero Torres, RN RN Gosia Ho Clarissa, RN RN cm10
== END 2023-03-31 21:24 | disposition home or self-care (01) ==
LOC: ER 17:48
DX: R10.12 Left upper quadrant pain (principal); L98.3 Eosinophilic cellulitis [Wells]
CPT/HCPCS: 96361; 85025; 81001; 36415; 81025; 83690; 80053; 74177; 96375; 96374; 99284; Q9967; J2405; J7030